=== PATIENT | female | born 1950 | race Caucasian/White ===

== ENCOUNTER → 2016-10-03 | Outpatient (CLI) | payer MEDICARE, OTHER ==
[2016-10-03 08:38] LABS: Basophils # (auto) 0 uL; Basophils % (auto) 0.4 % (0.0-2.0); Eosinophils # (auto) 0.5 uL; Hematocrit 45.4 % (36.0-46.0); Hemoglobin 14.9 g/dL (12.2-16.2); Lymphocytes # (auto) 1.7 uL; Lymphocytes % (auto) 28.6 % (10.0-50.0); Mean Corpuscular Hemoglobin 29.8 pg (28.0-32.0); Mean Corpuscular Hgb Conc. 32.9 g/dL (32.0-36.0); Mean Corpuscular Volume 90.5 fL (80.0-100.0); Mean Platelet Volume 8.1 fL (7.4-10.4); Monocytes # (auto) 0.3 uL; Monocytes % (auto) 5.9 % (0.0-12.0); Neutrophils # (auto) 3.2 uL; Neutrophils % (auto) 56.1 % (37.0-80.0); Platelet Count (auto) 257 10^3/uL (140-450); Red Cell Distribution Width 14.2 % (11.6-16.0); White Blood Cell 5.8 10^3/uL (4.4-10.8)
[2016-10-03 08:57] LABS: B-Type Natriuretic Peptide 11.86 pg/mL (0-100)
[2016-10-03 09:00] LABS: Albumin 3.8 g/dL (3.4-5.0); BUN/Creatinine Ratio 15.1; Bilirubin, Total 0.5 mg/dL (0.2-1.0); Calcium 9.1 mg/dL (8.5-10.1); Potassium 5.2 mmol/L (3.5-5.1); Temperature: 22.5 C (20.0-25.0); Total Protein 7.6 g/dL (6.4-8.2)
== END | disposition home or self-care (01) ==
LOC: LAB 08:08
PROVIDERS: ATTEND Internal Medicine Cardiovascular Disease
DX: I50.9 Heart failure, unspecified (principal)
CPT/HCPCS: 36415; 80053; 80061; 83880; 85025

== ENCOUNTER → 2016-10-29 | Outpatient (CLI) | payer OTHER | END | disposition home or self-care (01) | LOC: XY 08:10 | PROVIDERS: ATTEND Internal Medicine Cardiovascular Disease | DX: I20.8 Other forms of angina pectoris (principal) | CPT/HCPCS: 78452; 93017; 93306; A9500 ==

== ENCOUNTER → 2016-11-17 | Outpatient (CLI) | payer OTHER ==
[2016-11-17 09:30] LABS: Basophils # (auto) 0 uL; Basophils % (auto) 0.3 % (0.0-2.0); CONDITION Y; Eosinophils # (auto) 0.2 uL; Eosinophils % (auto) 2.9 % (0.0-7.0); Hematocrit 42.7 % (36.0-46.0); Hemoglobin 14.1 g/dL (12.2-16.2); Lymphocytes # (auto) 1.6 uL; Lymphocytes % (auto) 29.7 % (10.0-50.0); Mean Corpuscular Hemoglobin 29.7 pg (28.0-32.0); Mean Corpuscular Volume 89.9 fL (80.0-100.0); Mean Platelet Volume 7.7 fL (7.4-10.4); Monocytes # (auto) 0.3 uL; Monocytes % (auto) 6.1 % (0.0-12.0); Neutrophils # (auto) 3.3 uL; Platelet Count (auto) 330 10^3/uL (140-450); Red Cell Distribution Width 14.4 % (11.6-16.0); White Blood Cell 5.4 10^3/uL (4.4-10.8)
[2016-11-17 09:59] LABS: Albumin 3.7 g/dL (3.4-5.0); BUN/Creatinine Ratio 15.5; Bilirubin, Total 0.4 mg/dL (0.2-1.0); Calcium 9.2 mg/dL (8.5-10.1); Potassium 4.9 mmol/L (3.5-5.1); Total Protein 7.5 g/dL (6.4-8.2)
== END | disposition home or self-care (01) ==
LOC: LAB 09:13
PROVIDERS: ATTEND Internal Medicine
DX: L03.90 Cellulitis, unspecified (principal)
CPT/HCPCS: 36415; 80053; 85025; 85652

== ENCOUNTER → 2017-04-29 | Outpatient (CLI) | payer OTHER ==
[2017-04-29 10:44] LABS: Urine RBC None Seen /hpf (0 - 4)
[2017-04-29 11:02] LABS: Basophils # (auto) 0 uL; Basophils % (auto) 0.7 % (0.0-2.0); Eosinophils # (auto) 0.2 uL; Eosinophils % (auto) 4.2 % (0.0-7.0); Hematocrit 43.8 % (36.0-46.0); Hemoglobin 14.6 g/dL (12.2-16.2); Lymphocytes # (auto) 1.6 uL; Lymphocytes % (auto) 31.8 % (10.0-50.0); Mean Corpuscular Hemoglobin 29.6 pg (28.0-32.0); Mean Corpuscular Hgb Conc. 33.3 g/dL (32.0-36.0); Mean Corpuscular Volume 89.1 fL (80.0-100.0); Mean Platelet Volume 7.7 fL (6.9-10.8); Monocytes # (auto) 0.5 uL; Monocytes % (auto) 9.2 % (0.0-12.0); Neutrophils # (auto) 2.7 uL; Neutrophils % (auto) 54.1 % (37.0-80.0); Platelet Count (auto) 222 10^3/uL (140-450)
[2017-04-29 11:08] LABS: Urine Bilirubin Negative (Negative); Urine Blood Negative /uL (Negative); Urine Color Yellow (Yellow); Urine Glucose Normal (Normal); Urine Ketone Negative (Negative); Urine Mucus FEW (None Seen); Urine Nitrite Negative (Negative); Urine Squamous Epithelial Cell FEW /hpf (<5); Urine Urobilinogen Normal (Negative); Urine pH 5.5 (5.0-8.0)
[2017-04-29 11:27] LABS: Urine Protein/Creatinine Ratio 0.17
[2017-04-29 11:29] LABS: Bilirubin, Total 0.6 mg/dL (0.2-1.0); Calcium 8.9 mg/dL (8.5-10.1); Phosphorus 3.9 mg/dL (2.5-4.90); Potassium 4.6 mmol/L (3.5-5.1); Total Protein 7.5 g/dL (6.4-8.2)
== END | disposition home or self-care (01) ==
LOC: LAB 10:29
PROVIDERS: ATTEND Internal Medicine
DX: I12.9 Hypertensive chronic kidney disease with stage 1 through stage 4 chronic kidney disease, or unspecified chronic kidney disease (principal); N18.3 Chronic kidney disease, stage 3 (moderate); D63.1 Anemia in chronic kidney disease; E21.3 Hyperparathyroidism, unspecified; E55.9 Vitamin D deficiency, unspecified; M10.9 Gout, unspecified; E78.5 Hyperlipidemia, unspecified; R80.9 Proteinuria, unspecified
CPT/HCPCS: 36415; 80053; 80069; 81001; 82306; 82570; 83970; 84156; 84550; 85025

== ENCOUNTER → 2017-05-07 | Outpatient (CLI) | payer OTHER ==
[2017-05-07 09:38] LABS: Basophils # (auto) 0 uL; Basophils % (auto) 0.6 % (0.0-2.0); Eosinophils # (auto) 0.2 uL; Eosinophils % (auto) 4.6 % (0.0-7.0); Hematocrit 44.7 % (36.0-46.0); Hemoglobin 14.8 g/dL (12.2-16.2); Lymphocytes # (auto) 1.2 uL; Lymphocytes % (auto) 27.2 % (10.0-50.0); Mean Corpuscular Hemoglobin 29.6 pg (28.0-32.0); Mean Corpuscular Volume 89.7 fL (80.0-100.0); Monocytes # (auto) 0.4 uL; Monocytes % (auto) 9.2 % (0.0-12.0); Neutrophils # (auto) 2.7 uL; Neutrophils % (auto) 58.4 % (37.0-80.0); Nucleated Red Blood Cells % 0.1 %; Platelet Count (auto) 216 10^3/uL (140-450); Red Blood Cells 4.99 10^6/uL (4.0-5.20); Red Cell Distribution Width 14.1 % (11.8-14.3); White Blood Cell 4.6 10^3/uL (4.4-10.8)
[2017-05-07 09:57] LABS: Albumin 3.9 g/dL (3.4-5.0); Bilirubin, Total 0.6 mg/dL (0.2-1.0); Potassium 4.9 mmol/L (3.5-5.1); Total Protein 7.5 g/dL (6.4-8.2)
[2017-05-07 10:46] LABS: Urine Bacteria NONE SEEN /hpf (None Seen); Urine Blood Negative /uL (Negative); Urine Specific Gravity 1.021 (1.001-1.035); Urine WBC 3 /hpf (0 - 5)
== END | disposition home or self-care (01) ==
LOC: LAB 08:59
PROVIDERS: ATTEND Internal Medicine
DX: I10 Essential (primary) hypertension (principal); R19.7 Diarrhea, unspecified
CPT/HCPCS: 36415; 80053; 81001; 82150; 83690; 85025; 85652

== ENCOUNTER → 2017-10-26 | Outpatient (CLI) | payer OTHER ==
[2017-10-26 10:15] LABS: Basophils # (auto) 0 uL; Basophils % (auto) 0.6 % (0.0-2.0); Eosinophils # (auto) 0.2 uL; Eosinophils % (auto) 3.8 % (0.0-7.0); Hematocrit 45.7 % (36.0-46.0); Hemoglobin 15.5 g/dL (12.2-16.2); Lymphocytes % (auto) 20.2 % (10.0-50.0); Mean Corpuscular Hemoglobin 30.1 pg (28.0-32.0); Mean Corpuscular Hgb Conc. 33.9 g/dL (32.0-36.0); Mean Corpuscular Volume 88.9 fL (80.0-100.0); Monocytes # (auto) 0.3 uL; Neutrophils # (auto) 3.2 uL; Neutrophils % (auto) 68.4 % (37.0-80.0); Nucleated Red Blood Cells % 0.1 %; Platelet Count (auto) 193 10^3/uL (140-450); Red Blood Cells 5.15 10^6/uL (4.0-5.20); Red Cell Distribution Width 14.4 % (11.8-14.3); White Blood Cell 4.7 10^3/uL (4.4-10.8)
[2017-10-26 10:22] LABS: Urine Bacteria NONE SEEN /hpf (None Seen); Urine Blood Negative /uL (Negative); Urine Specific Gravity 1.014 (1.001-1.035); Urine WBC 3 /hpf (0 - 5)
[2017-10-26 10:41] LABS: BUN/Creatinine Ratio 11.5; Calcium 9.2 mg/dL (8.5-10.1); Phosphorus 3.6 mg/dL (2.5-4.90); Uric Acid 4.7 mg/dL (2.6-6.0)
[2017-10-26 13:16] LABS: Protein, Urine 22.5 mg/dL (0.0-11.9)
== END | disposition home or self-care (01) ==
LOC: LAB 09:19
PROVIDERS: ATTEND Internal Medicine
DX: E78.5 Hyperlipidemia, unspecified (principal); E55.9 Vitamin D deficiency, unspecified; M10.9 Gout, unspecified; N18.3 Chronic kidney disease, stage 3 (moderate); D63.1 Anemia in chronic kidney disease; E21.3 Hyperparathyroidism, unspecified; R80.9 Proteinuria, unspecified
CPT/HCPCS: 36415; 80069; 81001; 82306; 82570; 83970; 84156; 84550; 85025

== ENCOUNTER → 2018-01-13 | Outpatient (CLI) | payer OTHER ==
[2018-01-13 09:23] LABS: BUN/Creatinine Ratio 16.2; Calcium 8.6 mg/dL (8.5-10.1); Potassium 4.7 mmol/L (3.5-5.1)
== END | disposition home or self-care (01) ==
LOC: LAB 08:30
PROVIDERS: ATTEND Internal Medicine
DX: I12.9 Hypertensive chronic kidney disease with stage 1 through stage 4 chronic kidney disease, or unspecified chronic kidney disease (principal); N18.3 Chronic kidney disease, stage 3 (moderate)
CPT/HCPCS: 36415; 80048; 80061; 82306; 84443

== ENCOUNTER → 2018-06-02 | Outpatient (CLI) | payer OTHER ==
[2018-06-02 09:03] LABS: Basophils # (auto) 0 uL; Basophils % (auto) 0.5 % (0.0-2.0); Eosinophils # (auto) 0.2 uL; Eosinophils % (auto) 3.5 % (0.0-7.0); Hematocrit 45.9 % (36.0-46.0); Hemoglobin 15.5 g/dL (12.2-16.2); Lymphocytes # (auto) 1.1 uL; Lymphocytes % (auto) 26.2 % (10.0-50.0); Mean Corpuscular Hemoglobin 30.2 pg (28.0-32.0); Mean Corpuscular Hgb Conc. 33.8 g/dL (32.0-36.0); Mean Corpuscular Volume 89.2 fL (80.0-100.0); Monocytes # (auto) 0.3 uL; Monocytes % (auto) 7.4 % (0.0-12.0); Neutrophils # (auto) 2.7 uL; Neutrophils % (auto) 62.4 % (37.0-80.0); Nucleated Red Blood Cells % 0.1 %; Platelet Count (auto) 190 10^3/uL (140-450); Red Blood Cells 5.14 10^6/uL (4.0-5.20); Red Cell Distribution Width 13.9 % (11.8-14.3); White Blood Cell 4.3 10^3/uL (4.4-10.8)
[2018-06-02 09:20] LABS: Urine Bacteria FEW /hpf (None Seen); Urine Blood Negative /uL (Negative); Urine Mucus FEW (None Seen); Urine Specific Gravity 1.022 (1.001-1.035); Urine WBC 3 /hpf (0 - 5)
[2018-06-02 09:53] LABS: Albumin 3.9 g/dL (3.4-5.0); Calcium 9.4 mg/dL (8.5-10.1); Potassium 4.6 mmol/L (3.5-5.1); Uric Acid 4.4 mg/dL (2.6-6.0)
[2018-06-02 10:01] LABS: Protein, Urine 31.9 mg/dL (0.0-11.9)
== END | disposition home or self-care (01) ==
LOC: LAB 08:13
PROVIDERS: ATTEND Internal Medicine
DX: I12.9 Hypertensive chronic kidney disease with stage 1 through stage 4 chronic kidney disease, or unspecified chronic kidney disease (principal); N18.3 Chronic kidney disease, stage 3 (moderate); D63.1 Anemia in chronic kidney disease; E21.3 Hyperparathyroidism, unspecified; E55.9 Vitamin D deficiency, unspecified; E78.5 Hyperlipidemia, unspecified; M10.9 Gout, unspecified; R80.9 Proteinuria, unspecified
CPT/HCPCS: 36415; 80069; 81001; 82306; 82570; 83970; 84156; 84550; 85025

== ENCOUNTER → 2018-09-02 | Outpatient (CLI) | payer OTHER | END | disposition home or self-care (01) | LOC: XYW 08:57 | PROVIDERS: ATTEND Internal Medicine | DX: R07.9 Chest pain, unspecified (principal); I10 Essential (primary) hypertension | CPT/HCPCS: 93306 ==

== ENCOUNTER → 2018-09-16 | Outpatient (CLI) | payer OTHER ==
[~2018-09-16] VITALS: Ht 165.1 cm; Wt 54.4 kg
[~2018-09-16] MED LIST: ADENOSINE 46 MG in GIVE UN-DILUTED 0 ML IV STA
== END | disposition home or self-care (01) ==
LOC: XY 08:14
PROVIDERS: ATTEND Internal Medicine
DX: R07.9 Chest pain, unspecified (principal); I10 Essential (primary) hypertension
CPT/HCPCS: 78452; 93017; A9500; J0153

== ENCOUNTER → 2018-09-28 | Outpatient (CLI) | payer OTHER ==
[2018-09-28 08:34] LABS: Basophils # (auto) 0 uL; Basophils % (auto) 0.9 % (0.0-2.0); Eosinophils # (auto) 0.2 uL; Eosinophils % (auto) 4.1 % (0.0-7.0); Hemoglobin 15.1 g/dL (12.2-16.2); Lymphocytes % (auto) 23.7 % (10.0-50.0); Mean Corpuscular Hemoglobin 29.5 pg (28.0-32.0); Mean Corpuscular Hgb Conc. 32.9 g/dL (32.0-36.0); Mean Corpuscular Volume 89.7 fL (80.0-100.0); Monocytes # (auto) 0.3 uL; Neutrophils # (auto) 2.7 uL; Neutrophils % (auto) 63.3 % (37.0-80.0); Platelet Count (auto) 199 10^3/uL (140-450); Red Blood Cells 5.13 10^6/uL (4.0-5.20); Red Cell Distribution Width 14.4 % (11.8-14.3); White Blood Cell 4.2 10^3/uL (4.4-10.8)
[2018-09-28 08:41] LABS: Urine Bacteria NONE SEEN /hpf (None Seen); Urine Blood Negative /uL (Negative); Urine Specific Gravity 1.021 (1.001-1.035); Urine WBC 2 /hpf (0 - 5)
[2018-09-28 09:15] LABS: Albumin 3.9 g/dL (3.4-5.0); BUN/Creatinine Ratio 20.9; Potassium 4.6 mmol/L (3.5-5.1)
[2018-09-28 09:18] LABS: Bilirubin, Total 0.5 mg/dL (0.2-1.0); Total Protein 7.6 g/dL (6.4-8.2)
[2018-09-28 09:21] LABS: Free T3 2.84 pg/mL (2.3-4.2); Free T4 (Free Thyroxine) 1.11 ng/dL (0.89-1.76); T3 Total 1.09 ng/mL (0.60-1.81)
[2018-09-28 14:37] LABS: CRP High Sensitivity 0.07 mg/dL (< 0.3)
== END | disposition home or self-care (01) ==
LOC: LAB 08:04
PROVIDERS: ATTEND Internal Medicine
DX: R07.89 Other chest pain (principal)
CPT/HCPCS: 36415; 80053; 80061; 81001; 82306; 82607; 83036; 84439; 84443; 84480; 84481; 85025; 86141

== ENCOUNTER → 2018-12-06 | Outpatient (CLI) | payer OTHER ==
[2018-12-06 12:43] LABS: Basophils # (auto) 0 uL; Basophils % (auto) 0.7 % (0.0-2.0); Eosinophils # (auto) 0.2 uL; Eosinophils % (auto) 3.9 % (0.0-7.0); Hematocrit 44.8 % (36.0-46.0); Hemoglobin 14.9 g/dL (12.2-16.2); Lymphocytes # (auto) 1.4 uL; Lymphocytes % (auto) 31.3 % (10.0-50.0); Mean Corpuscular Hemoglobin 29.9 pg (28.0-32.0); Mean Corpuscular Hgb Conc. 33.3 g/dL (32.0-36.0); Mean Corpuscular Volume 89.7 fL (80.0-100.0); Monocytes # (auto) 0.4 uL; Monocytes % (auto) 8.2 % (0.0-12.0); Neutrophils # (auto) 2.5 uL; Neutrophils % (auto) 55.9 % (37.0-80.0); Platelet Count (auto) 181 10^3/uL (140-450); Red Cell Distribution Width 14.5 % (11.8-14.3); White Blood Cell 4.6 10^3/uL (4.4-10.8)
[2018-12-06 12:45] LABS: Urine Blood Negative /uL (Negative); Urine Specific Gravity 1.019 (1.001-1.035)
[2018-12-06 13:02] LABS: Albumin 3.7 g/dL (3.4-5.0); BUN/Creatinine Ratio 18.7; Calcium 9.1 mg/dL (8.5-10.1); Phosphorus 3.3 mg/dL (2.5-4.90); Potassium 4.7 mmol/L (3.5-5.1); Uric Acid 4.8 mg/dL (2.6-6.0)
[2018-12-06 13:03] LABS: Creatinine, Urine 88 mg/dL (30.0-125.0); Protein, Urine 18.2 mg/dL (0.0-11.9)
== END | disposition home or self-care (01) ==
LOC: LAB 12:25
PROVIDERS: ATTEND Internal Medicine
DX: E55.9 Vitamin D deficiency, unspecified (principal); N39.0 Urinary tract infection, site not specified; M10.9 Gout, unspecified; D63.1 Anemia in chronic kidney disease; N18.3 Chronic kidney disease, stage 3 (moderate); E21.3 Hyperparathyroidism, unspecified; R80.9 Proteinuria, unspecified
CPT/HCPCS: 36415; 80069; 81003; 82306; 82570; 83970; 84156; 84550; 85025

== ENCOUNTER → 2019-06-14 | Outpatient (CLI) | payer OTHER ==
[2019-06-14 10:18] LABS: Urine WBC None Seen /hpf (0 - 5)
[2019-06-14 10:25] LABS: Basophils # (auto) 0 uL; Basophils % (auto) 0.3 % (0.0-2.0); Eosinophils # (auto) 0.2 uL; Eosinophils % (auto) 2.7 % (0.0-7.0); Hemoglobin 15.4 g/dL (12.2-16.2); Lymphocytes # (auto) 1.2 uL; Lymphocytes % (auto) 22.7 % (10.0-50.0); Mean Corpuscular Hemoglobin 29.9 pg (28.0-32.0); Mean Corpuscular Hgb Conc. 32.9 g/dL (32.0-36.0); Mean Corpuscular Volume 90.9 fL (80.0-100.0); Monocytes # (auto) 0.4 uL; Monocytes % (auto) 6.8 % (0.0-12.0); Neutrophils # (auto) 3.7 uL; Neutrophils % (auto) 67.5 % (37.0-80.0); Platelet Count (auto) 208 10^3/uL (140-450); Red Blood Cells 5.17 10^6/uL (4.0-5.20); White Blood Cell 5.5 10^3/uL (4.4-10.8)
[2019-06-14 10:33] LABS: Urine Bacteria NONE SEEN /hpf (None Seen); Urine Blood Negative /uL (Negative)
[2019-06-14 10:50] LABS: BUN/Creatinine Ratio 20.6; Calcium 9.1 mg/dL (8.5-10.1); Phosphorus 3.8 mg/dL (2.5-4.90); Potassium 4.9 mmol/L (3.5-5.1); Uric Acid 4.2 mg/dL (2.6-6.0)
[2019-06-14 10:52] LABS: Protein, Urine 26.1 mg/dL (0.0-11.9)
== END | disposition home or self-care (01) ==
LOC: LAB 10:01
PROVIDERS: ATTEND Internal Medicine
DX: N18.3 Chronic kidney disease, stage 3 (moderate) (principal); D63.1 Anemia in chronic kidney disease; E21.3 Hyperparathyroidism, unspecified; E78.5 Hyperlipidemia, unspecified; M10.9 Gout, unspecified; R80.9 Proteinuria, unspecified; E55.9 Vitamin D deficiency, unspecified
CPT/HCPCS: 36415; 80069; 81001; 82306; 82570; 83970; 84156; 84550; 85025

== ENCOUNTER → 2019-10-25 | Outpatient (CLI) | payer OTHER ==
[2019-10-25 09:24] LABS: Urine Blood Negative /uL (Negative)
[2019-10-25 09:25] LABS: Basophils # (auto) 0 10 ^3/uL (0-0.2); Basophils % (auto) 0.7 % (0.0-2.0); Eosinophils # (auto) 0.3 10 ^3/uL (0-0.8); Eosinophils % (auto) 5.6 % (0.0-7.0); Hematocrit 48.9 % (36.0-46.0); Hemoglobin 15.3 g/dL (12.2-16.2); Lymphocytes # (auto) 1.3 10 ^3/uL (0.4-5.4); Lymphocytes % (auto) 26.2 % (10.0-50.0); Mean Corpuscular Hemoglobin 29.5 pg (28.0-32.0); Mean Corpuscular Hgb Conc. 31.3 g/dL (32.0-36.0); Mean Corpuscular Volume 94.1 fL (80.0-100.0); Monocytes # (auto) 0.5 10 ^3/uL (0-1.3); Monocytes % (auto) 9.5 % (0.0-12.0); Neutrophils # (auto) 2.8 10 ^3/uL (1.6-8.6); Platelet Count (auto) 210 10^3/uL (140-450); Red Cell Distribution Width 15.8 % (11.8-14.3); White Blood Cell 4.9 10^3/uL (4.4-10.8)
[2019-10-25 09:44] LABS: Creatinine, Urine 127 mg/dL (30.0-125.0); Protein, Urine 37.6 mg/dL (0.0-11.9)
[2019-10-25 09:49] LABS: Potassium 4.8 mmol/L (3.5-5.1)
[2019-10-25 09:58] LABS: Albumin 3.8 g/dL (3.4-5.0); BUN/Creatinine Ratio 20.7; Bilirubin, Total 0.5 mg/dL (0.2-1.0); Phosphorus 3.8 mg/dL (2.5-4.90); Total Protein 7.3 g/dL (6.4-8.2); Uric Acid 4.6 mg/dL (2.6-6.0)
== END | disposition home or self-care (01) ==
LOC: LAB 08:17
PROVIDERS: ATTEND Internal Medicine
DX: Z00.00 Encounter for general adult medical examination without abnormal findings (principal); I12.9 Hypertensive chronic kidney disease with stage 1 through stage 4 chronic kidney disease, or unspecified chronic kidney disease; N18.3 Chronic kidney disease, stage 3 (moderate); E55.9 Vitamin D deficiency, unspecified; M10.9 Gout, unspecified; D63.1 Anemia in chronic kidney disease; R80.9 Proteinuria, unspecified; E21.3 Hyperparathyroidism, unspecified; Z12.11 Encounter for screening for malignant neoplasm of colon
CPT/HCPCS: 36415; 80053; 80061; 80069; 81003; 82306; 82570; 83970; 84156; 84443; 84550; 85025

== ENCOUNTER → 2021-02-26 | Outpatient (CLI) | payer OTHER ==
[2021-02-26 09:41] LABS: Albumin 3.8 g/dL (3.4-5.0); Basophils # (auto) 0 10 ^3/uL (0-0.2); Basophils % (auto) 0.6 % (0.0-2.0); Calcium 9.5 mg/dL (8.5-10.1); Eosinophils # (auto) 0.1 10 ^3/uL (0-0.8); Eosinophils % (auto) 2.5 % (0.0-7.0); Hematocrit 45.8 % (36.0-46.0); Hemoglobin 15.1 g/dL (12.2-16.2); Lymphocytes # (auto) 1.2 10 ^3/uL (0.4-5.4); Lymphocytes % (auto) 25.3 % (10.0-50.0); Mean Corpuscular Hemoglobin 30.2 pg (28.0-32.0); Mean Corpuscular Volume 91.7 fL (80.0-100.0); Monocytes # (auto) 0.3 10 ^3/uL (0-1.3); Monocytes % (auto) 7.2 % (0.0-12.0); Neutrophils # (auto) 3.1 10 ^3/uL (1.6-8.6); Neutrophils % (auto) 64.4 % (37.0-80.0); Nucleated Red Blood Cells % 0.1 %; Potassium 4.9 mmol/L (3.5-5.1); Red Blood Cells 4.99 10^6/uL (4.0-5.20); Red Cell Distribution Width 14.6 % (11.8-14.3); White Blood Cell 4.8 10^3/uL (4.4-10.8)
[2021-02-26 09:47] LABS: BUN/Creatinine Ratio 21.3; Bilirubin, Total 0.5 mg/dL (0.2-1.0); Total Protein 7.7 g/dL (6.4-8.2)
== END | disposition home or self-care (01) ==
LOC: LAB 09:00
PROVIDERS: ATTEND Internal Medicine
DX: Z12.11 Encounter for screening for malignant neoplasm of colon (principal); Z00.00 Encounter for general adult medical examination without abnormal findings; E55.9 Vitamin D deficiency, unspecified; I10 Essential (primary) hypertension
CPT/HCPCS: 36415; 80053; 80061; 82274; 82306; 84439; 84443; 85025; 85652

== ENCOUNTER → 2021-06-05 | Outpatient (CLI) | payer OTHER ==
[2021-06-05 08:40] LABS: Basophils # (auto) 0 10 ^3/uL (0-0.2); Basophils % (auto) 0.8 % (0.0-2.0); Eosinophils # (auto) 0.2 10 ^3/uL (0-0.8); Eosinophils % (auto) 4.6 % (0.0-7.0); Hematocrit 45.1 % (36.0-46.0); Lymphocytes # (auto) 1.5 10 ^3/uL (0.4-5.4); Lymphocytes % (auto) 32.9 % (10.0-50.0); Mean Corpuscular Hemoglobin 30.3 pg (28.0-32.0); Mean Corpuscular Hgb Conc. 33.3 g/dL (32.0-36.0); Mean Corpuscular Volume 91.1 fL (80.0-100.0); Monocytes # (auto) 0.5 10 ^3/uL (0-1.3); Monocytes % (auto) 12.1 % (0.0-12.0); Neutrophils # (auto) 2.2 10 ^3/uL (1.6-8.6); Neutrophils % (auto) 49.6 % (37.0-80.0); Nucleated Red Blood Cells % 0.1 %; Red Blood Cells 4.95 10^6/uL (4.0-5.20); Red Cell Distribution Width 13.7 % (11.8-14.3); White Blood Cell 4.4 10^3/uL (4.4-10.8)
[2021-06-05 08:50] LABS: Urine Bacteria NONE SEEN /hpf (None Seen); Urine Blood Negative /uL (Negative); Urine Mucus FEW (None Seen); Urine Specific Gravity 1.022 (1.001-1.035); Urine WBC 7 /hpf (0 - 5)
[2021-06-05 09:05] LABS: Potassium 5.2 mmol/L (3.5-5.1)
[2021-06-05 09:12] LABS: Albumin 3.7 g/dL (3.4-5.0); BUN/Creatinine Ratio 18.3; Calcium 9.1 mg/dL (8.5-10.1); Phosphorus 3.9 mg/dL (2.5-4.90); Uric Acid 4.4 mg/dL (2.6-6.0)
[2021-06-05 09:13] LABS: Protein, Urine 28.4 mg/dL (0.0-11.9)
== END | disposition home or self-care (01) ==
LOC: LAB 08:07
PROVIDERS: ATTEND Internal Medicine
DX: D63.1 Anemia in chronic kidney disease (principal); N18.31 Chronic kidney disease, stage 3a; E21.3 Hyperparathyroidism, unspecified; E78.5 Hyperlipidemia, unspecified; R80.9 Proteinuria, unspecified; R82.90 Unspecified abnormal findings in urine; E56.9 Vitamin deficiency, unspecified
CPT/HCPCS: 36415; 80069; 81001; 82306; 82570; 83970; 84156; 84550; 85025

== ENCOUNTER → 2021-06-17 | Outpatient (CLI) | payer OTHER | END | disposition home or self-care (01) | LOC: XYW 08:35 | PROVIDERS: ATTEND Internal Medicine | DX: I07.1 Rheumatic tricuspid insufficiency (principal); I05.0 Rheumatic mitral stenosis; I35.0 Nonrheumatic aortic (valve) stenosis | CPT/HCPCS: 93306 ==

== ENCOUNTER → 2021-06-26 | Outpatient (CLI) | payer OTHER | END | disposition home or self-care (01) | LOC: XY 08:59 | PROVIDERS: ATTEND Internal Medicine | DX: R55 Syncope and collapse (principal); I10 Essential (primary) hypertension | CPT/HCPCS: 93886 ==

== ENCOUNTER → 2021-07-05 | Outpatient (CLI) | payer OTHER ==
[~2021-07-05] VITALS: Ht 162.6 cm; Wt 51.3 kg
[~2021-07-05] MED LIST changes: +ADENOSINE 43 MG in GIVE UN-DILUTED 0 ML IV ONE; -ADENOSINE 46 MG in GIVE UN-DILUTED 0 ML IV STA
== END | disposition home or self-care (01) ==
LOC: XYW 07:08
PROVIDERS: ATTEND Internal Medicine
DX: E78.5 Hyperlipidemia, unspecified (principal); I10 Essential (primary) hypertension; R55 Syncope and collapse
CPT/HCPCS: 78452; 93017; A9500; J0153

== ENCOUNTER → 2021-08-28 | Outpatient (CLI) | payer OTHER | END | disposition home or self-care (01) | LOC: LAB 09:57 | PROVIDERS: ATTEND Student in an Organized Health Care Education/Training Program | DX: Z12.11 Encounter for screening for malignant neoplasm of colon (principal) | CPT/HCPCS: 82270 ==

== ENCOUNTER → 2021-11-25 | Outpatient (CLI) | payer OTHER ==
[2021-11-25 08:00] LABS: Basophils # (auto) 0 10 ^3/uL (0-0.2); Basophils % (auto) 0.7 % (0.0-2.0); Eosinophils # (auto) 0.1 10 ^3/uL (0-0.8); Eosinophils % (auto) 2.4 % (0.0-7.0); Hematocrit 44.3 % (36.0-46.0); Hemoglobin 14.7 g/dL (12.2-16.2); Lymphocytes # (auto) 1.2 10 ^3/uL (0.4-5.4); Lymphocytes % (auto) 27.2 % (10.0-50.0); Mean Corpuscular Hemoglobin 30.5 pg (28.0-32.0); Mean Corpuscular Hgb Conc. 33.2 g/dL (32.0-36.0); Mean Corpuscular Volume 91.8 fL (80.0-100.0); Monocytes # (auto) 0.4 10 ^3/uL (0-1.3); Monocytes % (auto) 9.3 % (0.0-12.0); Neutrophils # (auto) 2.8 10 ^3/uL (1.6-8.6); Neutrophils % (auto) 60.4 % (37.0-80.0); Red Blood Cells 4.82 10^6/uL (4.0-5.20); Red Cell Distribution Width 14.6 % (11.8-14.3); White Blood Cell 4.6 10^3/uL (4.4-10.8)
[2021-11-25 08:16] LABS: Albumin 3.5 g/dL (3.4-5.0)
[2021-11-25 08:17] LABS: Protein, Urine 30.9 mg/dL (0.0-11.9)
[2021-11-25 08:20] LABS: Bilirubin, Direct 0.2 mg/dL (0-0.2); Bilirubin, Total 0.6 mg/dL (0.2-1.0); Total Protein 6.8 g/dL (6.4-8.2); Uric Acid 4.9 mg/dL (2.6-6.0)
[2021-11-25 08:23] LABS: Urine Amorphous Crystal FEW /hpf (None Seen); Urine Bacteria FEW /hpf (None Seen); Urine Blood Negative /uL (Negative); Urine Hyaline Cast FEW /lpf (0 - 2); Urine Mucus FEW (None Seen); Urine WBC 9 /hpf (0 - 5)
== END | disposition home or self-care (01) ==
LOC: LAB 07:25
PROVIDERS: ATTEND Internal Medicine
DX: N18.30 Chronic kidney disease, stage 3 unspecified (principal); D63.1 Anemia in chronic kidney disease; M10.9 Gout, unspecified; E56.9 Vitamin deficiency, unspecified; E21.3 Hyperparathyroidism, unspecified; R80.9 Proteinuria, unspecified
CPT/HCPCS: 36415; 80076; 81001; 82306; 82570; 83970; 84156; 84550; 85025

== ENCOUNTER 2022-01-08 06:51 | Day surgery (SDC) | payer OTHER ==
[2022-01-06 13:25] LABS: Basophils # (auto) 0 10 ^3/uL (0-0.2); Basophils % (auto) 0.6 % (0.0-2.0); Eosinophils # (auto) 0.1 10 ^3/uL (0-0.8); Eosinophils % (auto) 1.9 % (0.0-7.0); Hematocrit 46.6 % (36.0-46.0); Hemoglobin 15.1 g/dL (12.2-16.2); Lymphocytes # (auto) 0.7 10 ^3/uL (0.4-5.4); Lymphocytes % (auto) 15.1 % (10.0-50.0); Mean Corpuscular Hemoglobin 30.2 pg (28.0-32.0); Mean Corpuscular Hgb Conc. 32.4 g/dL (32.0-36.0); Mean Corpuscular Volume 93.3 fL (80.0-100.0); Monocytes # (auto) 0.5 10 ^3/uL (0-1.3); Monocytes % (auto) 9.9 % (0.0-12.0); Neutrophils # (auto) 3.3 10 ^3/uL (1.6-8.6); Neutrophils % (auto) 72.5 % (37.0-80.0); Nucleated Red Blood Cells % 0.1 %; Red Blood Cells 4.99 10^6/uL (4.0-5.20); Red Cell Distribution Width 14.7 % (11.8-14.3); White Blood Cell 4.6 10^3/uL (4.4-10.8)
[2022-01-06 13:56] LABS: Potassium 4.9 mmol/L (3.5-5.1)
[2022-01-06 14:05] LABS: Albumin 3.5 g/dL (3.4-5.0); BUN/Creatinine Ratio 19.9; Bilirubin, Total 0.3 mg/dL (0.2-1.0)
[2022-01-06 15:32] LABS: INR 0.96 (0.9-1.15); Partial Thromboplastin Time 24.8 sec (24.6-33.4)
[2022-01-08] VITALS (11 sets, daily range): BP systolic 120–143; BP diastolic 62–76
[~2022-01-08] VITALS: Ht 162.6 cm; Wt 47.6 kg
[~2022-01-08 06:51] MED LIST changes: -ADENOSINE 43 MG in GIVE UN-DILUTED 0 ML IV ONE; +HYDR12.56 PO; +METO-158 PO; +PANT40TA2 PO
[2022-01-08] MEDS ORDERED: IODIXANOL 320MG/ML 100ML BTL IV ONE ×2 (07:48→08:50)
[2022-01-08] MEDS ORDERED: LIDOCAINE 2%HCL (LOCAL ANESTH.) INJ 10ml MDV ONE (07:48)
[2022-01-08] MEDS ORDERED: fentaNYL CITRATE 100 MCG/2 ML VL ONE (08:24)
[2022-01-08] MEDS ORDERED: methylPREDNISolone SOD SUCC 125 MG/2 ML VL ONE (08:24)
[2022-01-08] MEDS ORDERED: VERAPAMIL 2.5MG/ML INJ 2ML VIAL IV ONE (08:24)
[2022-01-08] MEDS ORDERED: HEPARIN SODIUM (PORCINE) 5000 UNITS/ML 1ML VIAL ONE (08:24)
[2022-01-08] MEDS ORDERED: diphenhdrAMINE HCL 50 MG/1 ML VL ONE (08:24)
[2022-01-08] MEDS ORDERED: FAMOTIDINE (10MG/ML) 2ML VL IV ONE (08:25)
[2022-01-08] MEDS ORDERED: MIDAZOLAM HCL 2MG/2ML 2ml VIAL (1mg/ml) ONE (08:25)
[2022-01-08] MEDS ORDERED: SODIUM CHL 0.9% 50 ML ONE (08:49)
[2022-01-08] MEDS ORDERED: ANGIOMAX 250 MG VIAL IV ONE (08:49)
[2022-01-08] MEDS ORDERED: CLOPIDOGREL 300 MG TAB ONE (09:01)
== END 2022-01-08 14:05 | disposition home or self-care (01) ==
LOC: CATH 06:51
PROVIDERS: ATTEND Internal Medicine
DX: R94.39 Abnormal result of other cardiovascular function study (principal); I25.10 Atherosclerotic heart disease of native coronary artery without angina pectoris; I11.0 Hypertensive heart disease with heart failure; I50.30 Unspecified diastolic (congestive) heart failure; E78.5 Hyperlipidemia, unspecified; Z82.49 Family history of ischemic heart disease and other diseases of the circulatory system; Z20.822 Contact with and (suspected) exposure to COVID-19
CPT/HCPCS: 36415; 80053; 85025; 85610; 85730; 93458; 93571; C1725; C1769; C1874; C1887; C1894; C9600; J0583; J1200; J1644; J2001; J2930; J3010; J3490; J7030; Q9967; U0003; 99152; 99153; J2250

== ENCOUNTER 2022-03-03 12:12 | Inpatient (IN) | payer OTHER ==
[~2022-03-03] VITALS: Ht 160 cm; Wt 47.4 kg
[2022-03-03] MEDS ORDERED: ENOXAPARIN SOD 80 MG/0.8ML SYRINGE SC ONE (13:30)
[2022-03-03] MEDS ORDERED: NITROGLYCERIN 0.4 MG SL TAB SL ONE (13:30)
[2022-03-03] MEDS ORDERED: ASPirin-EC 325mg tab PO ONE (13:30)
[2022-03-03] MEDS ORDERED: MORPHINE SULFATE 4 MG/ML SYR/VIAL IV ONE (13:30)
[2022-03-03 13:47] LABS: Basophils # (auto) 0 10 ^3/uL (0-0.2); Basophils % (auto) 0.4 % (0.0-2.0); Eosinophils # (auto) 0 10 ^3/uL (0-0.8); Eosinophils % (auto) 0.5 % (0.0-7.0); Hematocrit 48.6 % (36.0-46.0); Hemoglobin 15.9 g/dL (12.2-16.2); Lymphocytes # (auto) 0.7 10 ^3/uL (0.4-5.4); Lymphocytes % (auto) 14.9 % (10.0-50.0); Mean Corpuscular Hemoglobin 31.4 pg (28.0-32.0); Mean Corpuscular Hgb Conc. 32.6 g/dL (32.0-36.0); Mean Corpuscular Volume 96.1 fL (80.0-100.0); Monocytes # (auto) 0.3 10 ^3/uL (0-1.3); Monocytes % (auto) 7.3 % (0.0-12.0); Neutrophils # (auto) 3.6 10 ^3/uL (1.6-8.6); Neutrophils % (auto) 76.9 % (37.0-80.0); Nucleated Red Blood Cells % 0.1 %; Red Blood Cells 5.06 10^6/uL (4.0-5.20); Red Cell Distribution Width 14.9 % (11.8-14.3); White Blood Cell 4.7 10^3/uL (4.4-10.8)
[2022-03-03 14:18] LABS: Albumin 3.7 g/dL (3.4-5.0); Calcium 9.1 mg/dL (8.5-10.1); Potassium 5.3 mmol/L (3.5-5.1)
[2022-03-03 14:23] LABS: BUN/Creatinine Ratio 14.3; Bilirubin, Total 0.7 mg/dL (0.2-1.0); Total Protein 6.9 g/dL (6.4-8.2)
[2022-03-03 14:37] LABS: Partial Thromboplastin Time 24.8 sec (24.6-33.4)
[2022-03-03 15:09] LABS: INR 0.98 (0.9-1.15)
[2022-03-03] MEDS ORDERED: NITROGLYCERIN 0.4 MG SL TAB SL PRN (16:30)
[2022-03-03] MEDS ORDERED: ONDANSETRON HCL 4 MG/2 ML VIAL IV PRN (16:30)
[2022-03-03] MEDS ORDERED: MORPHINE SULFATE INJ 2 MG/ml SYRG IV PRN (16:30)
[2022-03-03] MEDS ORDERED: hydrALAZINE HCL 20 MG/ML VL IV PRN (16:45)
[2022-03-03 17:08] LABS: Cholesterol 196 mg/dL (< 200); HDL Cholesterol 100 mg/dL (40-59); LDL Cholesterol 88 mg/dL (< 100); Triglycerides 99 mg/dL (< 150)
[2022-03-03] MEDS: SOD CHL 0.45% 1,000 ML IV SCH (18:27)
[2022-03-03 19:09] LABS: Urine Bacteria NONE SEEN /hpf (None Seen); Urine Blood Negative /uL (Negative); Urine Mucus FEW (None Seen); Urine Specific Gravity 1.021 (1.001-1.035); Urine WBC 2 /hpf (0 - 5)
[2022-03-03] MEDS: ATORVASTATIN 20 MG TAB PO SCH (21:34)
[2022-03-04] MEDS: SOD CHL 0.45% 1,000 ML IV SCH ×2 (02:36→05:00)
[2022-03-04] MEDS: ACETAMINOPHEN 325 MG TAB PO PRN ×2 (03:28→20:33)
[2022-03-04 06:10] LABS: Basophils # (auto) 0 10 ^3/uL (0-0.2); Basophils % (auto) 0.5 % (0.0-2.0); Eosinophils # (auto) 0.1 10 ^3/uL (0-0.8); Eosinophils % (auto) 1.9 % (0.0-7.0); Hematocrit 39.8 % (36.0-46.0); Hemoglobin 13.4 g/dL (12.2-16.2); Lymphocytes # (auto) 0.8 10 ^3/uL (0.4-5.4); Mean Corpuscular Hemoglobin 31.4 pg (28.0-32.0); Mean Corpuscular Hgb Conc. 33.5 g/dL (32.0-36.0); Mean Corpuscular Volume 93.5 fL (80.0-100.0); Monocytes # (auto) 0.5 10 ^3/uL (0-1.3); Monocytes % (auto) 11.2 % (0.0-12.0); Neutrophils # (auto) 3.1 10 ^3/uL (1.6-8.6); Neutrophils % (auto) 68.4 % (37.0-80.0); Nucleated Red Blood Cells % 0.1 %; Red Blood Cells 4.26 10^6/uL (4.0-5.20); Red Cell Distribution Width 14.3 % (11.8-14.3); White Blood Cell 4.5 10^3/uL (4.4-10.8)
[2022-03-04 06:25] LABS: Albumin 2.9 g/dL (3.4-5.0); Potassium 4.8 mmol/L (3.5-5.1)
[2022-03-04 06:28] LABS: BUN/Creatinine Ratio 15.4; Bilirubin, Total 0.5 mg/dL (0.2-1.0); Total Protein 5.2 g/dL (6.4-8.2)
[2022-03-04] MEDS ORDERED: METOPROLOL SUCCINATE XL 50 MG TAB PO SCH (10:00)
[2022-03-04] MEDS: ASPirin 81 mg TAB PO SCH (12:37)
[2022-03-04] MEDS: METOPROLOL SUCCINATE XL 50 MG TAB PO SCH (12:38)
[2022-03-04] MEDS: ENOXAPARIN SOD 30 MG/0.3 ML SYRINGE SC SCH (12:39)
[2022-03-04] MEDS: CLOPIDOGREL BISULFATE 75 MG TAB PO SCH (12:39)
[2022-03-04] MEDS: AMIODARONE HCL 200 MG TAB PO SCH (12:40)
[2022-03-04] MEDS: HCTZ 25 MG TAB PO SCH (12:40)
[2022-03-04 15:17] VITALS: BP_SYST 129; BP_DIAS 54; BP_DIAS 94
[2022-03-04 17:00] VITALS: BP 129/54
[2022-03-04] MEDS ORDERED: CLOP75TA70 PO (17:49)
[2022-03-04] MEDS ORDERED: AMIO200T4 PO (17:49)
[2022-03-04] MEDS: ATORVASTATIN 20 MG TAB PO SCH (20:31)
[2022-03-04 22:00] VITALS: BP 118/55
[2022-03-05 05:00] VITALS: BP 144/69
[2022-03-05 06:01] LABS: Basophils # (auto) 0 10 ^3/uL (0-0.2); Basophils % (auto) 0.5 % (0.0-2.0); Eosinophils # (auto) 0.1 10 ^3/uL (0-0.8); Eosinophils % (auto) 2.2 % (0.0-7.0); Hematocrit 43.6 % (36.0-46.0); Hemoglobin 14.3 g/dL (12.2-16.2); Lymphocytes # (auto) 0.9 10 ^3/uL (0.4-5.4); Lymphocytes % (auto) 15.9 % (10.0-50.0); Mean Corpuscular Hemoglobin 31.3 pg (28.0-32.0); Mean Corpuscular Hgb Conc. 32.9 g/dL (32.0-36.0); Mean Corpuscular Volume 95.1 fL (80.0-100.0); Monocytes # (auto) 0.7 10 ^3/uL (0-1.3); Monocytes % (auto) 11.9 % (0.0-12.0); Neutrophils # (auto) 3.9 10 ^3/uL (1.6-8.6); Neutrophils % (auto) 69.5 % (37.0-80.0); Nucleated Red Blood Cells % 0.1 %; Red Blood Cells 4.58 10^6/uL (4.0-5.20); Red Cell Distribution Width 14.7 % (11.8-14.3); White Blood Cell 5.5 10^3/uL (4.4-10.8)
[2022-03-05 06:20] LABS: BUN/Creatinine Ratio 11.1; Calcium 8.5 mg/dL (8.5-10.1); Potassium 4.5 mmol/L (3.5-5.1)
[2022-03-05] MEDS ORDERED: ADENOSINE 40 MG in GIVE UN-DILUTED 0 ML IV STA (07:57)
[2022-03-05 09:00] VITALS: BP 139/63
[2022-03-05] MEDS: PANTOPRAZOLE 40 MG TAB PO SCH (10:27)
[2022-03-05] MEDS: HCTZ 25 MG TAB PO SCH (10:29)
[2022-03-05] MEDS: ASPirin 81 mg TAB PO SCH (10:30)
[2022-03-05] MEDS: METOPROLOL SUCCINATE XL 50 MG TAB PO SCH (10:30)
[2022-03-05] MEDS: ENOXAPARIN SOD 30 MG/0.3 ML SYRINGE SC SCH (10:31)
[2022-03-05] MEDS: AMIODARONE HCL 200 MG TAB PO SCH (10:31)
[2022-03-05] MEDS: CLOPIDOGREL BISULFATE 75 MG TAB PO SCH (10:31)
[2022-03-05] MEDS ORDERED: ASPI-325 PO (11:54)
[2022-03-05] MEDS ORDERED: METO-158 PO (11:54)
[2022-03-05] MEDS ORDERED: ATOR20TA50 PO (11:54)
[2022-03-05] MEDS ORDERED: AMIO200T4 PO (11:54)
[2022-03-05 13:00] VITALS: BP 93/42
[2022-03-05 17:00] VITALS: BP 118/60
[2022-03-05] MEDS: ATORVASTATIN 20 MG TAB PO SCH (21:16)
[2022-03-05 22:00] VITALS: BP 113/49
[2022-03-06 05:08] VITALS: BP 140/74
[2022-03-06 07:45] VITALS: BP 126/73
[2022-03-06 09:00] VITALS: BP 126/73
[2022-03-06] MEDS: CLOPIDOGREL BISULFATE 75 MG TAB PO SCH (10:17)
[2022-03-06] MEDS: ASPirin 81 mg TAB PO SCH (10:18)
[2022-03-06] MEDS: METOPROLOL SUCCINATE XL 50 MG TAB PO SCH (10:18)
[2022-03-06] MEDS: PANTOPRAZOLE 40 MG TAB PO SCH (10:18)
[2022-03-06] MEDS: AMIODARONE HCL 200 MG TAB PO SCH (10:19)
[2022-03-06] MEDS: HCTZ 25 MG TAB PO SCH (10:19)
[2022-03-06] MEDS: ENOXAPARIN SOD 30 MG/0.3 ML SYRINGE SC SCH (10:20)
[2022-03-06 13:00] VITALS: BP_SYST 111; BP_SYST 113; BP_DIAS 74; BP_DIAS 78
[2022-03-06 15:19] VITALS: BP 111/74
== END 2022-03-06 16:04 | disposition home or self-care (01) | DRG 313 ==
LOC: ER 12:12 → TELE 16:24 → TELE-CENTR 03-04 15:10
PROVIDERS: ADMIT Nurse Practitioner Family; ATTEND Internal Medicine
DX: R07.9 Chest pain, unspecified (principal); N17.9 Acute kidney failure, unspecified; E87.5 Hyperkalemia; I12.9 Hypertensive chronic kidney disease with stage 1 through stage 4 chronic kidney disease, or unspecified chronic kidney disease; I25.119 Atherosclerotic heart disease of native coronary artery with unspecified angina pectoris; I27.20 Pulmonary hypertension, unspecified; N18.9 Chronic kidney disease, unspecified; Z20.822 Contact with and (suspected) exposure to COVID-19; R00.1 Bradycardia, unspecified; R73.03 Prediabetes; N18.2 Chronic kidney disease, stage 2 (mild); Z95.5 Presence of coronary angioplasty implant and graft; Z88.0 Allergy status to penicillin; Z91.041 Radiographic dye allergy status
CPT/HCPCS: 36415; 71045; 78452; 80048; 80053; 80061; 81001; 83036; 83735; 83880; 84443; 84484; 85025; 85610; 85730; 87426; 93005; 93017; 96360; G0378; J0153

== ENCOUNTER → 2022-04-08 | Outpatient (CLI) | payer OTHER ==
[~2022-04-08] MED LIST changes: +AMIO200T4 PO; +ASPI-325 PO; +ATOR20TA50 PO; +CLOP75TA70 PO; -HYDR12.56 PO; -PANT40TA2 PO
[2022-04-08 12:09] LABS: Basophils # (auto) 0 10 ^3/uL (0-0.2); Basophils % (auto) 0.5 % (0.0-2.0); Eosinophils # (auto) 0 10 ^3/uL (0-0.8); Eosinophils % (auto) 0.9 % (0.0-7.0); Hematocrit 47.1 % (36.0-46.0); Hemoglobin 15.1 g/dL (12.2-16.2); Lymphocytes # (auto) 0.8 10 ^3/uL (0.4-5.4); Lymphocytes % (auto) 18.6 % (10.0-50.0); Mean Corpuscular Hemoglobin 30.7 pg (28.0-32.0); Mean Corpuscular Hgb Conc. 31.9 g/dL (32.0-36.0); Monocytes # (auto) 0.5 10 ^3/uL (0-1.3); Monocytes % (auto) 10.7 % (0.0-12.0); Neutrophils # (auto) 3.1 10 ^3/uL (1.6-8.6); Neutrophils % (auto) 69.3 % (37.0-80.0); Red Blood Cells 4.91 10^6/uL (4.0-5.20); Red Cell Distribution Width 14.9 % (11.8-14.3); White Blood Cell 4.5 10^3/uL (4.4-10.8)
[2022-04-08 13:28] LABS: Albumin 3.3 g/dL (3.4-5.0); BUN/Creatinine Ratio 16.4; Phosphorus 3.6 mg/dL (2.5-4.90); Potassium 5.4 mmol/L (3.5-5.1); Uric Acid 3.6 mg/dL (2.6-6.0)
[2022-04-08 14:01] LABS: Protein, Urine 24.7 mg/dL (0.0-11.9)
[2022-04-08 16:41] LABS: Urine Blood Negative /uL (Negative); Urine Specific Gravity 1.019 (1.001-1.035)
[2022-04-08 19:44] LABS: Urine Bacteria NONE SEEN /hpf (None Seen); Urine WBC 0-2 /hpf (0 - 5)
== END | disposition home or self-care (01) ==
LOC: LAB 11:37
PROVIDERS: ATTEND Internal Medicine
DX: R80.9 Proteinuria, unspecified (principal)
CPT/HCPCS: 36415; 80069; 81001; 82570; 83970; 84156; 84550; 85025

== ENCOUNTER → 2022-07-16 | Outpatient (CLI) | payer OTHER | END | disposition home or self-care (01) | LOC: LAB 13:05 | PROVIDERS: ATTEND Student in an Organized Health Care Education/Training Program | DX: Z12.11 Encounter for screening for malignant neoplasm of colon (principal) | CPT/HCPCS: 82274 ==

== ENCOUNTER → 2022-08-12 | Outpatient (CLI) | payer MEDICARE ==
[2022-08-12 14:43] LABS: Basophils # (auto) 0 10 ^3/uL (0-0.2); Basophils % (auto) 0.4 % (0.0-2.0); Eosinophils # (auto) 0.1 10 ^3/uL (0-0.8); Eosinophils % (auto) 1.3 % (0.0-7.0); Hematocrit 44.7 % (36.0-46.0); Hemoglobin 15.2 g/dL (12.2-16.2); Lymphocytes % (auto) 18.2 % (10.0-50.0); Mean Corpuscular Hemoglobin 31.6 pg (28.0-32.0); Mean Corpuscular Volume 92.9 fL (80.0-100.0); Monocytes # (auto) 0.4 10 ^3/uL (0-1.3); Neutrophils % (auto) 72.1 % (37.0-80.0); Red Blood Cells 4.82 10^6/uL (4.0-5.20); Red Cell Distribution Width 14.4 % (11.8-14.3); White Blood Cell 5.6 10^3/uL (4.4-10.8)
[2022-08-12 14:53] LABS: Urine Bacteria NONE SEEN /hpf (None Seen); Urine Blood Negative /uL (Negative); Urine Hyaline Cast FEW /lpf (0 - 2); Urine Specific Gravity 1.019 (1.001-1.035); Urine WBC 2 /hpf (0 - 5)
[2022-08-12 15:24] LABS: Albumin 3.3 g/dL (3.4-5.0); BUN/Creatinine Ratio 22.4 (10.0-20.0); Calcium 8.6 mg/dL (8.5-10.1); Phosphorus 3.3 mg/dL (2.5-4.90); Potassium 4.1 mmol/L (3.5-5.1); Uric Acid 4.8 mg/dL (2.6-6.0)
[2022-08-12 15:53] LABS: Protein, Urine 24.3 mg/dL (0.0-11.9)
== END | disposition home or self-care (01) ==
LOC: LAB 14:06
PROVIDERS: ATTEND Internal Medicine
DX: E78.5 Hyperlipidemia, unspecified (principal); N18.31 Chronic kidney disease, stage 3a; E21.3 Hyperparathyroidism, unspecified; M10.9 Gout, unspecified; R80.9 Proteinuria, unspecified; R82.90 Unspecified abnormal findings in urine
CPT/HCPCS: 36415; 80069; 81001; 82306; 82570; 83970; 84156; 84550; 85025

== ENCOUNTER → 2022-08-20 | Outpatient (CLI) | payer OTHER | END | disposition home or self-care (01) | LOC: XYW 08:28 | PROVIDERS: ATTEND Student in an Organized Health Care Education/Training Program | DX: I73.9 Peripheral vascular disease, unspecified (principal); I70.8 Atherosclerosis of other arteries | CPT/HCPCS: 93925 ==

== ENCOUNTER → 2022-11-17 | Outpatient (CLI) | payer OTHER ==
[~2022-11-17] MED LIST changes: +AMIO200T13 PO; -AMIO200T4 PO
[2022-11-17 09:32] LABS: Albumin 3.3 g/dL (3.4-5.0); BUN/Creatinine Ratio 19.6 (10.0-20.0); Calcium 8.8 mg/dL (8.5-10.1); Potassium 4.9 mmol/L (3.5-5.1)
[2022-11-17 09:45] LABS: Protein, Urine 34.6 mg/dL (0.0-11.9)
== END | disposition home or self-care (01) ==
LOC: LAB 08:08
PROVIDERS: ATTEND Internal Medicine
DX: N18.30 Chronic kidney disease, stage 3 unspecified (principal); E11.21 Type 2 diabetes mellitus with diabetic nephropathy; E55.9 Vitamin D deficiency, unspecified; E21.3 Hyperparathyroidism, unspecified; M10.9 Gout, unspecified; D63.1 Anemia in chronic kidney disease; N39.0 Urinary tract infection, site not specified; R80.9 Proteinuria, unspecified
CPT/HCPCS: 36415; 80069; 82306; 82570; 83970; 84156; 84550

== ENCOUNTER → 2023-05-07 | Outpatient (CLI) | payer OTHER ==
[2023-05-07 14:42] LABS: Basophils # (auto) 0 10 ^3/uL (0-0.2); Basophils % (auto) 0.4 % (0.0-2.0); Eosinophils # (auto) 0.1 10 ^3/uL (0-0.8); Eosinophils % (auto) 1.4 % (0.0-7.0); Hematocrit 47.4 % (36.0-46.0); Hemoglobin 15.3 g/dL (12.2-16.2); Mean Corpuscular Hemoglobin 30.5 pg (28.0-32.0); Mean Corpuscular Hgb Conc. 32.2 g/dL (32.0-36.0); Mean Corpuscular Volume 94.6 fL (80.0-100.0); Monocytes # (auto) 0.5 10 ^3/uL (0-1.3); Monocytes % (auto) 12.7 % (0.0-12.0); Neutrophils # (auto) 2.7 10 ^3/uL (1.6-8.6); Neutrophils % (auto) 62.5 % (37.0-80.0); Red Blood Cells 5.01 10^6/uL (4.0-5.20); Red Cell Distribution Width 14.1 % (11.8-14.3); White Blood Cell 4.2 10^3/uL (4.4-10.8)
[2023-05-07 14:48] LABS: Urine Bacteria FEW /hpf (None Seen); Urine Blood Negative /uL (Negative); Urine Clarity Clear (Clear); Urine Color Yellow (Yellow); Urine Protein, UAD Negative (Negative); Urine Specific Gravity 1.019 (1.001-1.035); Urine Urobilinogen Normal (Negative); Urine WBC 1 /hpf (0 - 5); Urine pH 5.5 (5.0-8.0)
[2023-05-07 15:02] LABS: Potassium 4.7 mmol/L (3.5-5.1)
[2023-05-07 15:04] LABS: Calcium 9.6 mg/dL (8.5-10.1)
[2023-05-07 15:05] LABS: Protein, Urine 21.7 mg/dL (0.0-11.9)
[2023-05-07 15:08] LABS: Creatinine, Urine 92.32 mg/dL (30.0-125.0); Urine Protein/Creatinine Ratio 0.24
[2023-05-07 15:09] LABS: BUN/Creatinine Ratio 13.1 (10.0-20.0)
[2023-05-07 15:10] LABS: Albumin 4.4 g/dL (3.2-4.8)
[2023-05-07 15:11] LABS: Phosphorus 3.9 mg/dL (2.4-5.1)
[2023-05-07 15:35] LABS: Uric Acid 4.7 mg/dL (3.1-7.8)
== END | disposition home or self-care (01) ==
LOC: LAB 14:17
PROVIDERS: ATTEND Internal Medicine
DX: N18.31 Chronic kidney disease, stage 3a (principal); D63.1 Anemia in chronic kidney disease; E78.5 Hyperlipidemia, unspecified; M10.9 Gout, unspecified; E21.3 Hyperparathyroidism, unspecified; R80.9 Proteinuria, unspecified; R82.90 Unspecified abnormal findings in urine
CPT/HCPCS: 36415; 80069; 81001; 82306; 82570; 83970; 84156; 84550; 85025

== ENCOUNTER 2023-05-20 08:50 | Emergency (ER) | payer OTHER ==
[~2023-05-20] VITALS: Ht 162.6 cm; Wt 45.6 kg
[2023-05-20 12:43] VITALS: BP 135/55; PULSE 65; RESP 16; TEMP 98.4; O2SAT 95
== END 2023-05-20 12:44 | disposition home or self-care (01) ==
LOC: ER 08:50
DX: S61.412A Laceration without foreign body of left hand, initial encounter (principal); S61.411A Laceration without foreign body of right hand, initial encounter; I10 Essential (primary) hypertension; Z88.8 Allergy status to other drugs, medicaments and biological substances; Z79.899 Other long term (current) drug therapy; Z91.041 Radiographic dye allergy status; V89.2XXA Person injured in unspecified motor-vehicle accident, traffic, initial encounter; Y93.I9 Activity, other involving external motion; Y92.89 Other specified places as the place of occurrence of the external cause; Y99.8 Other external cause status

== ENCOUNTER → 2023-05-21 | Outpatient (CLI) | payer OTHER ==
[2023-05-21 12:26] LABS: Free T3 3.6 pg/mL (2.3-4.2); Free T4 (Free Thyroxine) 1.61 ng/dL (0.89-1.76)
== END | disposition home or self-care (01) ==
LOC: LAB 11:21
PROVIDERS: ATTEND Internal Medicine
DX: E21.3 Hyperparathyroidism, unspecified (principal)
CPT/HCPCS: 36415; 84439; 84443; 84481

== ENCOUNTER → 2023-10-13 | Outpatient (CLI) | payer OTHER ==
[2023-10-13 09:58] LABS: Basophils # (auto) 0 10 ^3/uL (0-0.2); Basophils % (auto) 0.5 % (0.0-2.0); Eosinophils # (auto) 0.2 10 ^3/uL (0-0.8); Eosinophils % (auto) 3.9 % (0.0-7.0); Hematocrit 43.6 % (36.0-46.0); Hemoglobin 14.3 g/dL (12.2-16.2); Lymphocytes # (auto) 0.8 10 ^3/uL (0.4-5.4); Lymphocytes % (auto) 13.7 % (10.0-50.0); Mean Corpuscular Hemoglobin 29.6 pg (28.0-32.0); Mean Corpuscular Hgb Conc. 32.8 g/dL (32.0-36.0); Mean Corpuscular Volume 90.3 fL (80.0-100.0); Monocytes # (auto) 0.7 10 ^3/uL (0-1.3); Monocytes % (auto) 11.7 % (0.0-12.0); Neutrophils % (auto) 70.2 % (37.0-80.0); Nucleated Red Blood Cells % 0.1 %; Red Blood Cells 4.83 10^6/uL (4.0-5.20); White Blood Cell 5.6 10^3/uL (4.4-10.8)
[2023-10-13 10:15] LABS: Urine Bacteria FEW /hpf (None Seen); Urine Blood 1+ /uL (Negative); Urine Clarity Turbid (Clear); Urine Color Yellow (Yellow); Urine Mucus FEW (None Seen); Urine Protein, UAD TRACE (Negative); Urine Specific Gravity 1.023 (1.001-1.035); Urine Urobilinogen 2 mg/dL (Negative); Urine WBC 14 /hpf (0 - 5); Urine pH 5.5 (5.0-9.0)
[2023-10-13 10:57] LABS: Calcium 9.3 mg/dL (8.5-10.1)
[2023-10-13 11:02] LABS: BUN/Creatinine Ratio 15.9 (10.0-20.0)
[2023-10-13 11:04] LABS: Albumin 3.7 g/dL (3.2-4.8); Phosphorus 3.6 mg/dL (2.4-5.1)
[2023-10-13 11:13] LABS: Uric Acid 5.2 mg/dL (3.1-7.8)
[2023-10-13 11:16] LABS: Protein, Urine 44.1 mg/dL (0.0-11.9)
[2023-10-13 11:18] LABS: Creatinine, Urine 121.78 mg/dL (30.0-125.0); Urine Protein/Creatinine Ratio 0.36
== END | disposition home or self-care (01) ==
LOC: LAB 09:44
PROVIDERS: ATTEND Internal Medicine
DX: N18.31 Chronic kidney disease, stage 3a (principal); D63.1 Anemia in chronic kidney disease; M10.9 Gout, unspecified; E21.3 Hyperparathyroidism, unspecified; E78.5 Hyperlipidemia, unspecified; R80.9 Proteinuria, unspecified; R82.90 Unspecified abnormal findings in urine
CPT/HCPCS: 36415; 80069; 81001; 82306; 82570; 83970; 84156; 84550; 85025

== ENCOUNTER → 2023-11-24 | Outpatient (CLI) | payer OTHER ==
[~2023-11-24] MED LIST changes: +AMIO200T33 PO; +HYDR12.59 PO
[2023-11-24 14:38] LABS: Basophils # (auto) 0 10 ^3/uL (0-0.2); Basophils % (auto) 0.5 % (0.0-2.0); Eosinophils # (auto) 0.1 10 ^3/uL (0-0.8); Eosinophils % (auto) 1.1 % (0.0-7.0); Hematocrit 45.7 % (36.0-46.0); Hemoglobin 14.8 g/dL (12.2-16.2); Lymphocytes # (auto) 0.8 10 ^3/uL (0.4-5.4); Lymphocytes % (auto) 16.9 % (10.0-50.0); Mean Corpuscular Hemoglobin 29.5 pg (28.0-32.0); Mean Corpuscular Hgb Conc. 32.4 g/dL (32.0-36.0); Mean Corpuscular Volume 91.3 fL (80.0-100.0); Monocytes # (auto) 0.6 10 ^3/uL (0-1.3); Monocytes % (auto) 12.3 % (0.0-12.0); Neutrophils # (auto) 3.3 10 ^3/uL (1.6-8.6); Neutrophils % (auto) 69.2 % (37.0-80.0); Nucleated Red Blood Cells % 0.1 %; Red Blood Cells 5.01 10^6/uL (4.0-5.20); Red Cell Distribution Width 16.3 % (11.8-14.3); White Blood Cell 4.8 10^3/uL (4.4-10.8)
[2023-11-24 14:58] LABS: INR 1.03 (0.9-1.15); Partial Thromboplastin Time 24.9 SEC (24.5-34.5); Prothrombin Time 10.9 sec (9.3-11.8)
[2023-11-24 15:03] LABS: Alanine Aminotransferase 22 U/L (7-40); Alkaline Phosphatase 84 U/L (46-116); Anion Gap 2 (5-15); Aspartate Aminotransferase 15 U/L (13-40); Bilirubin, Total 0.4 mg/dL (0.2-1.0); Blood Urea Nitrogen 27 mg/dL (9-23); Carbon Dioxide 34 mmol/L (20-30); Chloride 106 mmol/L (98-107); Glucose 114 mg/dL (74-106); Potassium 3.9 mmol/L (3.5-5.1); Sodium 142 mmol/L (136-145); Total Protein 6.3 g/dL (5.7-8.2)
== END | disposition home or self-care (01) ==
LOC: LAB 14:23
PROVIDERS: ATTEND Internal Medicine
DX: Z01.812 Encounter for preprocedural laboratory examination (principal); E11.22 Type 2 diabetes mellitus with diabetic chronic kidney disease; N18.30 Chronic kidney disease, stage 3 unspecified; D63.1 Anemia in chronic kidney disease
CPT/HCPCS: 36415; 80053; 85025; 85610; 85730

== ENCOUNTER 2023-11-25 10:58 | Day surgery (SDC) | payer OTHER ==
[2023-11-25] VITALS (8 sets, daily range): BP systolic 107–131; BP diastolic 57–70; PULSE 58–68; RESP 12–24; O2SAT 88–98
[~2023-11-25] VITALS: Ht 162.6 cm; Wt 44.5 kg
[~2023-11-25 10:58] MED LIST changes: -AMIO200T13 PO
[2023-11-25] MEDS ORDERED: IODIXANOL 320MG/ML 100ML BTL IV ONE (12:37)
[2023-11-25] MEDS ORDERED: HEPARIN IN NS 1000Units/500mL 1,500 ML ONE (12:38)
[2023-11-25] MEDS ORDERED: ANGIOMAX 250 MG VIAL IV ONE (12:46)
[2023-11-25] MEDS ORDERED: HEPARIN SODIUM (PORCINE) 5000 UNITS/ML 1ML VIAL ONE (12:46)
[2023-11-25] MEDS ORDERED: VERAPAMIL 2.5MG/ML INJ 2ML VIAL IV ONE (12:46)
[2023-11-25] MEDS ORDERED: LIDOCAINE 2%HCL (LOCAL ANESTH.) INJ 20ML MDV ONE (12:47)
[2023-11-25] MEDS ORDERED: fentaNYL CITRATE 100 MCG/2 ML VL ONE (12:47)
[2023-11-25] MEDS ORDERED: MIDAZOLAM HCL 2MG/2ML 2ml VIAL (1mg/ml) ONE (12:47)
[2023-11-25] MEDS ORDERED: SODIUM CHL 0.9% 0 ML ONE (12:47)
== END 2023-11-25 15:35 | disposition home or self-care (01) ==
LOC: CATH 10:58
PROVIDERS: ATTEND Internal Medicine
DX: I25.10 Atherosclerotic heart disease of native coronary artery without angina pectoris (principal); R07.9 Chest pain, unspecified; Z79.82 Long term (current) use of aspirin; Z79.899 Other long term (current) drug therapy; Z95.5 Presence of coronary angioplasty implant and graft
CPT/HCPCS: 93458; C1769; C1887; C1894; J1644; J2250; J3010; Q9967; 99152

== ENCOUNTER → 2024-02-16 | Outpatient (CLI) | payer OTHER ==
[2024-02-16 11:53] LABS: Urine Bacteria None Seen /hpf (None Seen)
[2024-02-16 11:56] LABS: Basophils # (auto) 0 10 ^3/uL (0-0.2); Basophils % (auto) 0.5 % (0.0-2.0); Eosinophils # (auto) 0 10 ^3/uL (0-0.8); Eosinophils % (auto) 0.3 % (0.0-7.0); Hematocrit 47.8 % (36.0-46.0); Hemoglobin 15.3 g/dL (12.2-16.2); Lymphocytes # (auto) 0.7 10 ^3/uL (0.4-5.4); Lymphocytes % (auto) 13.8 % (10.0-50.0); Mean Corpuscular Hemoglobin 28.8 pg (28.0-32.0); Mean Corpuscular Hgb Conc. 32.1 g/dL (32.0-36.0); Mean Corpuscular Volume 89.7 fL (80.0-100.0); Monocytes # (auto) 0.4 10 ^3/uL (0-1.3); Monocytes % (auto) 9.2 % (0.0-12.0); Neutrophils # (auto) 3.6 10 ^3/uL (1.6-8.6); Neutrophils % (auto) 76.2 % (37.0-80.0); Platelet Count (auto) 168 10^3/uL (140-450); Red Blood Cells 5.33 10^6/uL (4.0-5.20); Red Cell Distribution Width 16.9 % (11.8-14.3); White Blood Cell 4.7 10^3/uL (4.4-10.8)
[2024-02-16 12:17] LABS: Urine Blood Negative /uL (Negative); Urine Clarity Clear (Clear); Urine Color Yellow (Yellow); Urine Protein, UAD TRACE (Negative); Urine Specific Gravity 1.023 (1.001-1.035); Urine Urobilinogen 2 mg/dL (Negative); Urine WBC 2 /hpf (0 - 5); Urine pH 5.5 (5.0-9.0)
[2024-02-16 12:32] LABS: Potassium 4.5 mmol/L (3.5-5.1)
[2024-02-16 12:33] LABS: Calcium 9.2 mg/dL (8.7-10.4)
[2024-02-16 12:37] LABS: Uric Acid 4.3 mg/dL (3.1-7.8)
[2024-02-16 12:38] LABS: BUN/Creatinine Ratio 17.1 (10.0-20.0)
[2024-02-16 12:41] LABS: Phosphorus 3.6 mg/dL (2.4-5.1)
[2024-02-16 12:57] LABS: Creatinine, Urine 114.88 mg/dL (30.0-125.0)
== END | disposition home or self-care (01) ==
LOC: LAB 11:40
PROVIDERS: ATTEND Internal Medicine
DX: E11.21 Type 2 diabetes mellitus with diabetic nephropathy (principal); E11.22 Type 2 diabetes mellitus with diabetic chronic kidney disease; N18.30 Chronic kidney disease, stage 3 unspecified; D63.1 Anemia in chronic kidney disease; E55.9 Vitamin D deficiency, unspecified; M10.9 Gout, unspecified; E21.3 Hyperparathyroidism, unspecified; R80.9 Proteinuria, unspecified; N39.0 Urinary tract infection, site not specified
CPT/HCPCS: 36415; 80069; 81001; 82043; 82570; 83970; 84550; 85025

== ENCOUNTER → 2024-03-21 | Outpatient (CLI) | payer OTHER ==
[2024-03-21 10:26] LABS: Urine Bacteria None Seen /hpf (None Seen)
[2024-03-21 10:31] LABS: Basophils # (auto) 0 10 ^3/uL (0-0.2); Basophils % (auto) 0.4 % (0.0-2.0); Eosinophils # (auto) 0 10 ^3/uL (0-0.8); Eosinophils % (auto) 0.2 % (0.0-7.0); Hematocrit 52.4 % (36.0-46.0); Hemoglobin 16.3 g/dL (12.2-16.2); Lymphocytes # (auto) 0.7 10 ^3/uL (0.4-5.4); Mean Corpuscular Hemoglobin 28.2 pg (28.0-32.0); Mean Corpuscular Hgb Conc. 31.2 g/dL (32.0-36.0); Mean Corpuscular Volume 90.3 fL (80.0-100.0); Monocytes # (auto) 0.4 10 ^3/uL (0-1.3); Monocytes % (auto) 7.8 % (0.0-12.0); Neutrophils % (auto) 78.6 % (37.0-80.0); Nucleated Red Blood Cells % 0.1 %; Platelet Count (auto) 183 10^3/uL (140-450); Red Cell Distribution Width 16.7 % (11.8-14.3); Urine Blood Negative /uL (Negative); Urine Clarity Clear (Clear); Urine Color Light-Yellow (Yellow); Urine Protein, UAD Negative (Negative); Urine Specific Gravity 1.011 (1.001-1.035); Urine Urobilinogen Normal (Negative); Urine WBC <1 /hpf (0 - 5)
[2024-03-21 11:54] LABS: Alanine Aminotransferase 30 U/L (7-40); Alkaline Phosphatase 90 U/L (46-116); Anion Gap 5 (5-15); Aspartate Aminotransferase 26 U/L (13-40); Blood Urea Nitrogen 29 mg/dL (9-23); Calcium 9.6 mg/dL (8.7-10.4); Carbon Dioxide 34 mmol/L (20-31); Chloride 104 mmol/L (98-107); Cholesterol 142 mg/dL (< 200); Glucose 88 mg/dL (74-106); HDL Cholesterol 71 mg/dL (40-59); LDL Cholesterol 47 mg/dL (< 100); Sodium 143 mmol/L (136-145); Triglycerides 72 mg/dL (< 150)
[2024-03-21 11:55] LABS: Bilirubin, Total 0.7 mg/dL (0.2-1.0); Total Protein 6.7 g/dL (5.7-8.2)
[2024-03-21 12:38] LABS: T3 Total 1.02 ng/mL (0.60-1.81)
[2024-03-21 12:39] LABS: Free T4 (Free Thyroxine) 1.39 ng/dL (0.89-1.76)
== END | disposition home or self-care (01) ==
LOC: LAB 10:10
PROVIDERS: ATTEND Internal Medicine
DX: Z00.01 Encounter for general adult medical examination with abnormal findings (principal); I12.9 Hypertensive chronic kidney disease with stage 1 through stage 4 chronic kidney disease, or unspecified chronic kidney disease; N18.32 Chronic kidney disease, stage 3b; E78.5 Hyperlipidemia, unspecified
CPT/HCPCS: 36415; 80053; 80061; 81001; 83036; 84439; 84480; 85025

== ENCOUNTER 2024-04-08 11:07 | Inpatient (IN) | payer OTHER ==
[~2024-04-08] VITALS: Ht 162.6 cm; Wt 52.2 kg
[~2024-04-08 11:07] MED LIST changes: +BENA-36 PO; +FURO20TA3 PO; +LATA0.0020 OP
--- NOTE | 2024-04-08 11:41 | ED.PDOC ---
SOB-HPI HPI Comments 74 y.o female with PMH of right kidney cancer, esophageal replacement, presents to the ED for a chief complaint of SOB that started one month ago. Patient brought in by son who reports SOB worsened last night, worse when patient is laying flat. Patient is currently saturating in the 70% room air, was placed on 6 liters NC here with saturation levels increasing to 97%. Patient denies any respiratory illnesses, home oxygen use, chest pain, chills, fever. Patient also presents with bilateral leg swelling that presented one month ago as well. Chief Complaint: Shortness of Breath Time Seen by MD: 11:12 Primary Care Provider: KAY Walters notes: Nurses Notes, Medications, Allergies Information Source: Patient, Relative (son) Mode of Arrival: Wheelchair Severity: Moderate Timing: Months (1) Duration: Since onset Context: At Rest PE Risk Factors: None History of: None Modifying Factors: Nothing; Exertion, Laying flat Associated Signs and Symptoms: None Past Medical History PAST MEDICAL HISTORY: Cancer (right kidney ), HTN Surgical History: PTCA Surgical History (Other): right kidney removal, esophagus replacement SENIOR CHEMICAL ENGINEER History: No Pertinent SENIOR CHEMICAL ENGINEER History Family History Family History: Reviewed,noncontributory to illness Social History Smoker: Non-Smoker Alcohol: Denies ETOH Use Drugs: Denies Drug Use Lives In: Home Constitutional: denies: chills, diaphoresis, fatigue, fever, malaise, sweats, weakness, others EENTM: denies: blurred vision, double vision, ear bleeding, ear discharge, ear drainage, ear pain, ear ringing, eye pain, eye redness, hearing loss, mouth pain, mouth swelling, nasal discharge, nose bleeding, nose congestion, nose pain, photophobia, tearing, throat pain, throat swelling, voice changes, others Respiratory: reports: SOB at rest, shortness of breath, SOB with excertion; denies: cough, hemoptysis, orthopnea, stridor, wheezing, others Cardiovascular: denies: chest pain, dizzy spells, diaphoresis, Dyspnea on exertion, edema, irregular heart beat, left arm pain, lightheadedness, palpitations, PND, syncope, others Gastrointestinal: denies: abdomen distended, abdominal pain, blood streaked bowels, constipated, diarrhea, dysphagia, difficulty swallowing, hematemesis, melena, nausea, poor appetite, poor fluid intake, rectal bleeding, rectal pain, vomiting, others Genitourinary: denies: abnormal vagina bleeding, burning, dyspareunia, dysuria, flank pain, frequency, hematuria, incontinence, pain, , vagina discharge, urgency, others Neurological: denies: dizziness, fainting, headache, left sided numbness, left sided weakness, numbness, paresthesia, pre-existing deficit, right sided numbnes s, right sided weakness, seizure, speech problems, tingling, tremors, weakness, others Musculoskeletal: denies: back pain, gout, joint pain, joint swelling, muscle pain, muscle stiffness, neck pain, others Integumetry: denies: bruises, change in color, change in hair/nails, dryness, laceration, lesions, lumps, rash, wounds, others Allergic/Immunocompromised: denies: Difficulty Healing, Frequent Infections, Hives, Itching, others Hematologic/Lymphatic: denies: anemia, blood clots, easy bleeding, easy bruising, swollen glands, others Endocrine: denies: excessive hunger, excessive sweating, excessive thirst, excessive urination, flushing, intolerance to cold, intolerance to heat, unexplained weight gain, unexplained weight loss, others Psychiatric: denies: anxiety, bipolar disorder, depression, hopeless, panic disorder, schizophrenia, sleepless, suicidal, others All Other Systems: Reviewed and Negative Physical Exam General Appearance: Moderate Distress HEENT: Normal ENT Inspection, Pharynx Normal, TMs Normal Neck: Full Range of Motion, Non-Tender, Normal, Normal Inspection Respiratory: Chest Non-Tender, Lungs Clear, No Accessory Muscle Use, No Respiratory Distress, Normal Breath Sounds Cardiovascular: No Edema, No JVD, No Murmur, No Gallop, Normal Peripheral Pulses, Regular Rate/Rhythm Breast Exam: Deferred Gastrointestinal: No Organomegaly, Non Tender, No Pulsatile Mass, Normal Bowel Sounds, Soft Genitalia: Deferred Pelvic: Deferred Rectal: Deferred Extremities: Other (3+ pitting edema bilaterally ) Musculoskeletal : Apperance: Normal Neurologic: Alert, tripe scraper II-XII nml as Tested, No Motor Deficits, Normal Affect, Normal Mood, No Sensory Deficits Cerebellar Function: Normal Reflexes: Normal Skin: Dry, Normal Color, Warm Lymphatic: No Adenopathy EKG EKG : Pulse Rate (adult): 82 [place]: Normal Cardiac Rhythm: NSR Block: None Hypertrophy: None ST: Normal Was a procedure done? Was a procedure done?: No Differential Dx Differential Diagnosis: Asthma, Bronchitis, COPD, Pneumonia, Respiratory Distress, URI X-Ray, Labs, Meds, VS Vital Signs Date Time Temp Pulse Resp B/P (MAP) Pulse Ox O2 Delivery O2 Flow Rate FiO2 04/08/24 16:00 72 15 115/66 (82) 100 04/08/24 15:01 73 20 107/74 (85) 100 04/08/24 14:00 73 17 117/58 (77) 100 04/08/24 13:55 73 17 100 Nasal Cannula* 5 40 04/08/24 13:00 73 17 121/67 (85) 100 04/08/24 12:00 97.8 78 20 114/62 (79) 100 97.8 04/08/24 12:00 117/78 04/08/24 11:23 98.3 86 16 105/61 (76) 97 04/08/24 11:22 16 97 Nasal Cannula* 6 44 04/08/24 11:21 82 Lab Test 04/08/24 15:33 04/08/24 14:26 04/08/24 12:48 04/08/24 11:36 Range/Units Urine Color Light-yellow Yellow Urine Clarity Clear Clear Urine pH 5.0 5.0-9.0 Urine Specific [place] 1.011 1.001-1.035 Urine Protein Trace H Negative Urine Ketones Negative Negative Urine Blood Negative Negative /uL Urine Nitrite Negative Negative Urine Bilirubin Negative Negative Urine Urobilinogen Normal Negative mg/dL Urine Leukocyte Esterase Negative Negative /uL Urine RBC <1 0 - 4 /hpf Urine WBC <1 0 - 5 /hpf Urine Squamous Epithelial Cells Few <5 /hpf Urine Bacteria None seen None Seen /hpf Urine Hyaline Casts Few 0 - 2 /lpf Urine Glucose Normal Normal mg/dL Troponin I High Sensitivity 19 29 32 </=34 ng/L White Blood Count 5.8 4.4-10.8 10^3/uL Red Blood Count 5.68 H 4.0-5.20 10^6/uL Hemoglobin 16.0 12.2-16.2 g/dL Hematocrit 51.3 H 36.0-46.0 % Mean Corpuscular Volume 90.2 80.0-100.0 fL Mean Corpuscular Hemoglobin 28.1 28.0-32.0 pg Mean Corpuscular Hemoglobin Concent 31.2 L 32.0-36.0 g/dL Red Cell Distribution Width 16.5 H 11.8-14.3 % Platelet Count 199 140-450 10^3/uL Mean Platelet Volume 7.9 6.9-10.8 fL Neutrophils (%) (Auto) 83.0 H 37.0-80.0 % Lymphocytes (%) (Auto) 7.1 L 10.0-50.0 % Monocytes (%) (Auto) 9.2 0.0-12.0 % Eosinophils (%) (Auto) 0.2 0.0-7.0 % Basophils (%) (Auto) 0.5 0.0-2.0 % Neutrophils # (Auto) 4.8 1.6-8.6 10 ^3/uL Lymphocytes # (Auto) 0.4 0.4-5.4 10 ^3/uL Monocytes # (Auto) 0.5 0-1.3 10 ^3/uL Eosinophils # (Auto) 0 0-0.8 10 ^3/uL Basophils # (Auto) 0 0-0.2 10 ^3/uL Nucleated Red Blood Cells 0.4 % Sodium Level 142 136-145 mmol/L Potassium Level 5.3 H 3.5-5.1 mmol/L Chloride Level 104 98-107 mmol/L Carbon Dioxide Level 30 20-31 mmol/L Anion Gap 8 5-15 Blood Urea Nitrogen 54 H 9-23 mg/dL Creatinine 2.49 H 0.550-1.02 mg/dL Glomerular Filtration Rate Calc 20 >90 mL/min BUN/Creatinine Ratio 21.7 H 10.0-20.0 Serum Glucose 112 H 74-106 mg/dL Calcium Level 9.2 8.7-10.4 mg/dL B-Type Natriuretic Peptide 1359.49 0-100 pg/mL Current Medications Medications (Trade) Dose Ordered Sig/Carol Route Start Time Stop Time Status Last Admin Furosemide (Lasix Injection) 40 mg ONCE ONCE IV 04/08/24 11:15 04/08/24 11:17 DC 04/08/24 12:00 Time of 1ST Reevaluation: 11:37 Reevaluation 1ST: Unchanged Time of 2ND Reevaluation: 13:00 Reevaluation 2ND: Improved Time of 3RD Reevaluation: 16:25 Reevaluation 3RD: Improved Patient Education/Counseling: Diagnosis, Treatment, Prognosis Family Education/Counseling: Diagnosis, Treatment, Prognosis Additional Information External Notes: 03/21/24- Outpatient B arterial Duplex and lab, 05/20/23- Skin tear of the hand without complications Ordered Test: CBC, BMP, BNP, CXR Reviewed Result: LAB including Troponin, EKG, Covid and Influenza A+B swabs Independent Historian: Son Interpreted results: CXR- agreed with radiologist-IMPRESSION: 1. Pulmonary interstitial edema. 2. Small bilateral pleural effusions. Discuss tx/ results: Patient, Son, and medical personnel Pt has acute on chronic chf and acute on chronic renal failure. she will be admitted for further treatments Departure 1 Departure Time of Disposition: 16:26 Impression: Primary Impression: CHF (congestive heart failure) Qualified Codes: I50.23 - Acute on chronic systolic (congestive) heart failure Additional Impression: Renal failure Qualified Codes: N19 - Unspecified kidney failure Disposition: ADMITTED INPATIENT Condition: Stable Critical Care Note Critical Care Time?: Yes (90 min-critical care time only) Critical care comment: due to concerns for pt's condition deteriorating, her care required my highest level of attention and readiness to intervene. i assessed her, ordered the proper tests and treatemtns, reassessed her, communicated with [facility] personnel, consulted with consultants, reviewed her test results, reassessed her response, formulated a treatment plan. the time includes at least 50% face-face interaction and does not include any procedures Stability Stability form required: No I personally scribed for VITO MACK MD ([facility]) on 04/08/24 at 11:41. Electronically submitted by Priscilla Kemp ([employer]). I personally scribed for VITO MACK MD ([facility]) on 04/08/24 at 11:51. Electronically submitted by Priscilla Kemp ([employer]). I personally scribed for VITO MACK MD ([employer]) on 04/08/24 at 13:00. Electronically submitted by Priscilla Kemp ([employer]). VITO MACK MD Apr 08, 2024 11:41
[2024-04-08 11:55] LABS: Basophils # (auto) 0 10 ^3/uL (0-0.2); Eosinophils # (auto) 0 10 ^3/uL (0-0.8); Lymphocytes # (auto) 0.4 10 ^3/uL (0.4-5.4); Lymphocytes % (auto) 7.1 % (10.0-50.0); Monocytes # (auto) 0.5 10 ^3/uL (0-1.3); Nucleated Red Blood Cells % 0.4 %
[2024-04-08 11:59] LABS: Chloride 104 mmol/L (98-107); Sodium 142 mmol/L (136-145)
[2024-04-08 12:00] LABS: Anion Gap 8 (5-15); Carbon Dioxide 30 mmol/L (20-31)
[2024-04-08] MEDS: FUROSEMIDE 40 MG/4 ML VIAL IV ONE (12:00)
[2024-04-08 12:01] LABS: Calcium 9.2 mg/dL (8.7-10.4)
[2024-04-08 12:05] LABS: BUN/Creatinine Ratio 21.7 (10.0-20.0)
[2024-04-08 12:08] LABS: Basophils % (auto) 0.5 % (0.0-2.0); Eosinophils % (auto) 0.2 % (0.0-7.0); Hematocrit 51.3 % (36.0-46.0); Mean Corpuscular Hemoglobin 28.1 pg (28.0-32.0); Mean Corpuscular Hgb Conc. 31.2 g/dL (32.0-36.0); Mean Corpuscular Volume 90.2 fL (80.0-100.0); Monocytes % (auto) 9.2 % (0.0-12.0); Neutrophils # (auto) 4.8 10 ^3/uL (1.6-8.6); Platelet Count (auto) 199 10^3/uL (140-450); Red Blood Cells 5.68 10^6/uL (4.0-5.20); Red Cell Distribution Width 16.5 % (11.8-14.3); White Blood Cell 5.8 10^3/uL (4.4-10.8)
--- NOTE | 2024-04-08 12:12 | DVH ---
CHEST RADIOGRAPH Indication: SOB Technique: Single frontal view of the chest was obtained Comparison: CHEST PORTABLE on DOS: 03/03/22, EKG on DOS: 03/03/22 FINDINGS: Lines and Tubes: None Lungs: There is bilateral interstitial prominence. Pleura: Small bilateral pleural effusions. No pneumothorax. Cardiomediastinal contours: Unremarkable Bones: No acute osseous abnormality. Status post median sternotomy. IMPRESSION: 1. Pulmonary interstitial edema. 2. Small bilateral pleural effusions.
[2024-04-08 12:13] LABS: Blood Urea Nitrogen 54 mg/dL (9-23); Glucose 112 mg/dL (74-106); Potassium 5.3 mmol/L (3.5-5.1)
[2024-04-08 13:55] VITALS: PULSE 73; RESP 17; O2SAT 100
[2024-04-08 15:34] LABS: Urine Bacteria None Seen /hpf (None Seen)
[2024-04-08 15:43] LABS: Urine Blood Negative /uL (Negative); Urine Clarity Clear (Clear); Urine Color Light-Yellow (Yellow); Urine Hyaline Cast FEW /lpf (0 - 2); Urine Protein, UAD TRACE (Negative); Urine Specific Gravity 1.011 (1.001-1.035); Urine Urobilinogen Normal (Negative); Urine WBC <1 /hpf (0 - 5)
--- NOTE | 2024-04-08 17:21 | DVHHP2 ---
History of Present Illness Reason for Visit: Shortness of breaths History of Present Illness 74 year old female with past medical history of kidney cancer and esophageal replacement history of CHF hypertension comes into the ED for evaluation of severe shortness of breath patient states his shortness breath has been present a month on evaluation in the ED patient had multiple complaints including continue complaints of orthopnea patient unable to lay flat having trouble maintaining saturations and requiring O 2 saturations and O2 support patient also reports having leg swelling bilaterally patient recommended for admission further evaluation Cardiovascular: CHF, HTN Renal/: Chronic renal insuff, Acute renal failure Review of Systems Constitutional: Yes: Weakness; No: Fever, Chills, Sweats, Malaise, Other Eyes: No: Pain, Vision change, Conjunctivae inflammation, Eyelid inflammation, Other, Redness ENT: No: Ear pain, Ear discharge, Nose pain, Nose discharge, Nose congestion, Mouth pain, Mouth swelling, Throat pain, Throat swelling, Other Respiratory: Cough, Shortness of breath; No: Dry, SOB with excertion, Wheezing, Hemoptysis, Pleuritic Pain, Sputum, Wheezing, Other Cardiovascular: Chest Pain, Palpitations; No: Orthopnea, Paroxysmal Noc. Dyspnea, Edema, Lt Headedness, Other Gastrointestinal: No: Nausea, Vomiting, Abdominal Pain, Diarrhea, Constipation, Melena, Hematochezia, Other Genitourinary: No Dysuria, No Frequency, No Incontinence, No Hematuria, No Retention, No Other Musculoskeletal: No: other, neck pain, shoulder pain, arm pain, back pain, hand pain, leg pain, foot pain Skin: No: Rash, Lesions, Jaundice, Bruising, Other Neurological: No: Weakness, Numbness, Incoordination, Change in speech, Confusion, Seizures, Other Allergies: Coded Allergies: Iodine (Verified Allergy, Unknown, 03/03/22) Iron (Verified Allergy, Unknown, 03/03/22) Penicillins (Verified Allergy, Unknown, 03/03/22) Exam Vital Signs Vital Signs Date Time Temp Pulse Resp B/P (MAP) Pulse Ox O2 Delivery O2 Flow Rate FiO2 04/08/24 16:00 72 15 115/66 (82) 100 04/08/24 13:55 Nasal Cannula* 5 40 04/08/24 12:00 97.8 97.8 General Appearance: Alert, Oriented X3, severe distress HEENT: Atraumatic, PERRLA Respiratory: Clear to auscultation, Normal air movement Cardiovascular: Regular rate, Normal S1, Normal S2 Abdominal: Normal bowel sounds, Soft, No tenderness Extremities: No clubbing, No cyanosis, No edema (Pitting edema 3+) Skin: No rashes, No breakdown Neuro: Normal gait, Normal speech Psych/Mental Status: Mood NL Labs/Xrays Labs Test 04/08/24 15:33 04/08/24 14:26 04/08/24 11:36 Range/Units Urine Color Light-yellow Yellow Urine Clarity Clear Clear Urine pH 5.0 5.0-9.0 Urine Specific [place] 1.011 1.001-1.035 Urine Protein Trace H Negative Urine Ketones Negative Negative Urine Blood Negative Negative /uL Urine Nitrite Negative Negative Urine Bilirubin Negative Negative Urine Urobilinogen Normal Negative mg/dL Urine Leukocyte Esterase Negative Negative /uL Urine RBC <1 0 - 4 /hpf Urine WBC <1 0 - 5 /hpf Urine Squamous Epithelial Cells Few <5 /hpf Urine Bacteria None seen None Seen /hpf Urine Hyaline Casts Few 0 - 2 /lpf Urine Glucose Normal Normal mg/dL Troponin I High Sensitivity 19 </=34 ng/L White Blood Count 5.8 4.4-10.8 10^3/uL Red Blood Count 5.68 H 4.0-5.20 10^6/uL Hemoglobin 16.0 12.2-16.2 g/dL Hematocrit 51.3 H 36.0-46.0 % Mean Corpuscular Volume 90.2 80.0-100.0 fL Mean Corpuscular Hemoglobin 28.1 28.0-32.0 pg Mean Corpuscular Hemoglobin Concent 31.2 L 32.0-36.0 g/dL Red Cell Distribution Width 16.5 H 11.8-14.3 % Platelet Count 199 140-450 10^3/uL Mean Platelet Volume 7.9 6.9-10.8 fL Neutrophils (%) (Auto) 83.0 H 37.0-80.0 % Lymphocytes (%) (Auto) 7.1 L 10.0-50.0 % Monocytes (%) (Auto) 9.2 0.0-12.0 % Eosinophils (%) (Auto) 0.2 0.0-7.0 % Basophils (%) (Auto) 0.5 0.0-2.0 % Neutrophils # (Auto) 4.8 1.6-8.6 10 ^3/uL Lymphocytes # (Auto) 0.4 0.4-5.4 10 ^3/uL Monocytes # (Auto) 0.5 0-1.3 10 ^3/uL Eosinophils # (Auto) 0 0-0.8 10 ^3/uL Basophils # (Auto) 0 0-0.2 10 ^3/uL Nucleated Red Blood Cells 0.4 % Sodium Level 142 136-145 mmol/L Potassium Level 5.3 H 3.5-5.1 mmol/L Chloride Level 104 98-107 mmol/L Carbon Dioxide Level 30 20-31 mmol/L Anion Gap 8 5-15 Blood Urea Nitrogen 54 H 9-23 mg/dL Creatinine 2.49 H 0.550-1.02 mg/dL Glomerular Filtration Rate Calc 20 >90 mL/min BUN/Creatinine Ratio 21.7 H 10.0-20.0 Serum Glucose 112 H 74-106 mg/dL Calcium Level 9.2 8.7-10.4 mg/dL B-Type Natriuretic Peptide 1359.49 0-100 pg/mL Assessment/Plan Assessment/Plan Admit to [facility] Acute on chronic systolic CHF Patient was signs of overt fluid overload Shortness of breath Positive for orthopnea Patient to be started on b.i.d. diuretics Patient with elevated BNP greater than 1300 new line new line Chest x-ray shows signs of pulmonary edema Mild bilateral pulmonary effusion Acute renal failure History of kidney cancer History of hypertension Patient with elevated BUN creatinine History of hypertension Continue with patient's home medications Plan discussed with: Patient Problem List: (1) CHF (congestive heart failure) (2) Acute kidney injury (3) Renal failure (4) Hyperkalemia Date of Service: Apr 08, 2024 Billing Provider: JONAS KAY MD Common Visit Codes: [id number] INP/OBS CARE (HIGH) JONAS KAY MD Apr 08, 2024 17:21
[2024-04-08] MEDS ORDERED: DEXTROSE (50%) 50ML SYRG IV PRN (17:30)
[2024-04-08] MEDS ORDERED: ACETAMINOPHEN 325 MG TAB PO PRN (17:30)
[2024-04-08] MEDS ORDERED: MORPHINE SULFATE INJ 2 MG/ml SYRG IV PRN (17:30)
[2024-04-08] MEDS ORDERED: HYDROcodone-ACET 5/325MG TAB PO PRN (17:30)
[2024-04-08] MEDS ORDERED: MAALOX PLUS or MAALOX 30 ML PO PRN (17:30)
[2024-04-08] MEDS: SODIUM CHLORIDE 0.9% 1,000 ML IV SCH (17:53)
[2024-04-08 18:39] LABS: Basophils # (auto) 0 10 ^3/uL (0-0.2); Basophils % (auto) 0.4 % (0.0-2.0); Eosinophils # (auto) 0 10 ^3/uL (0-0.8); Eosinophils % (auto) 0.1 % (0.0-7.0); Hematocrit 46.8 % (36.0-46.0); Hemoglobin 14.4 g/dL (12.2-16.2); Lymphocytes # (auto) 0.5 10 ^3/uL (0.4-5.4); Lymphocytes % (auto) 10.6 % (10.0-50.0); Mean Corpuscular Hemoglobin 28.2 pg (28.0-32.0); Mean Corpuscular Hgb Conc. 30.7 g/dL (32.0-36.0); Mean Corpuscular Volume 91.8 fL (80.0-100.0); Monocytes # (auto) 0.7 10 ^3/uL (0-1.3); Monocytes % (auto) 14.4 % (0.0-12.0); Neutrophils # (auto) 3.7 10 ^3/uL (1.6-8.6); Neutrophils % (auto) 74.5 % (37.0-80.0); Nucleated Red Blood Cells % 0.5 %; Platelet Count (auto) 157 10^3/uL (140-450); Red Cell Distribution Width 16.4 % (11.8-14.3); White Blood Cell 4.9 10^3/uL (4.4-10.8)
[2024-04-08 18:42] LABS: Potassium 4.4 mmol/L (3.5-5.1); Sodium 143 mmol/L (136-145)
[2024-04-08 18:43] LABS: Anion Gap 7 (5-15); Carbon Dioxide 28 mmol/L (20-31)
[2024-04-08 18:46] LABS: Calcium 7.7 mg/dL (8.7-10.4); Chloride 108 mmol/L (98-107)
[2024-04-08 18:48] LABS: BUN/Creatinine Ratio 21.7 (10.0-20.0)
[2024-04-08 18:49] LABS: Blood Urea Nitrogen 47 mg/dL (9-23); Glucose 162 mg/dL (74-106)
[2024-04-08] MEDS: InsuLIN REG 1unit/0.01ml Soln (100units/ml) SC SCH (20:00)
[2024-04-08] MEDS: ACCU-CHEK COMFORT CURVE STRIP VI SCH (20:17)
[2024-04-08 20:25] LABS: Rapid Influenza A Negative (Negative); Rapid Influenza B Negative (Negative)
[2024-04-08 20:26] LABS: COVID19 ANTIGEN SOFIA FIA NEGATIVE (NEGATIVE)
[2024-04-08] MEDS: FUROSEMIDE 20 MG/2 ML VIAL IV SCH (21:55)
[2024-04-08] MEDS: ATORVASTATIN 20 MG TAB PO SCH (21:55)
[2024-04-09] VITALS (9 sets, daily range): BP systolic 91–108; BP diastolic 45–62; PULSE 69–82; RESP 14–18; TEMP 97.5–98; O2SAT 90–100
[2024-04-09] MEDS: ASPirin-EC 81 mg tab PO SCH (09:39)
[2024-04-09] MEDS: AMIODARONE HCL 200 MG TAB PO SCH (09:39)
[2024-04-09] MEDS: CLOPIDOGREL BISULFATE 75 MG TAB PO SCH (09:40)
--- NOTE | 2024-04-09 17:18 | DVHPN2 ---
Subjective Some shortness of breath Reviewed: Care Plan, H&P, Labs, Medications, Previous Orders, Radiology Changes from previous H/P or p: No Changes Objective Vitals Vital Signs Date Time Temp Pulse Resp B/P (MAP) Pulse Ox O2 Delivery O2 Flow Rate FiO2 04/09/24 13:00 98.0 75 16 108/49 (68) 100 98.0 04/09/24 07:30 Nasal Cannula* 4 36 Intake/Output Intake and Output 04/09/24 07:00 Intake Total 420 ml Balance 420 ml Intake Oral 0 ml IV Total 420 ml General Appearance: Alert, Oriented X3, Cooperative, mild distress HEENT: Atraumatic Lungs: Other (Few crackles bilateral lungs) Cardiovascular: Regular rate Abdomen: Normal bowel sounds Extremities: Other (1+ edema bilateral lower extremities with some) Medications Current Medications Medications Dose Ordered Sig/Carol Route Start Time Stop Time Status Last Admin Dose Admin Amiodarone HCl 200 mg DAILY PO 04/09/24 10:00 04/09/24 09:39 200 MG Aspirin 81 mg DAILY PO 04/09/24 10:00 04/09/24 09:39 81 MG Atorvastatin Calcium 40 mg HS PO 04/08/24 22:00 04/08/24 21:55 40 MG Clopidogrel Bisulfate 75 mg DAILY PO 04/09/24 10:00 04/09/24 09:40 75 MG Furosemide 20 mg BID IV 04/08/24 22:00 04/08/24 21:55 20 MG Diagnostic Test (Pha) 1 strip IQ4HR 04/08/24 20:00 04/09/24 15:58 1 STRIP Insulin Human Regular IQ4HR SC 04/08/24 20:00 Dextrose 50 ml UD PRN IV 04/08/24 17:30 Al Hydrox/Mg Hydrox/Simethicone 30 ml Q6HP PRN PO 04/08/24 17:30 Docusate Sodium 100 mg BIDPRN PRN PO 04/08/24 17:30 Acetaminophen 650 mg Q6HP PRN PO 04/08/24 17:30 Acetaminophen/ Hydrocodone Bitart 1 tab Q4HP PRN PO 04/08/24 17:30 Ondansetron HCl 4 mg Q4HP PRN IV 04/08/24 17:30 Morphine Sulfate 2 mg Q4HPRN PRN IV 04/08/24 17:30 Laboratory Results Laboratory Tests 04/08/24 18:17 Chemistry Test 04/08/24 18:17 Calcium Level 7.7 mg/dL (8.7-10.4) L Urinalysis Test 04/08/24 15:33 Urine Color Light-yellow (Yellow) Urine Clarity Clear (Clear) Urine pH 5.0 (5.0-9.0) Urine Specific [place] 1.011 (1.001-1.035) Urine Protein Trace (Negative) H Urine Ketones Negative (Negative) Urine Blood Negative /uL (Negative) Urine Nitrite Negative (Negative) Urine Bilirubin Negative (Negative) Urine Urobilinogen Normal mg/dL (Negative) Urine Leukocyte Esterase Negative /uL (Negative) Urine RBC <1 /hpf (0 - 4) Urine WBC <1 /hpf (0 - 5) Urine Squamous Epithelial Cells Few /hpf (<5) Urine Bacteria None seen /hpf (None Seen) Urine Hyaline Casts Few /lpf (0 - 2) Urine Glucose Normal mg/dL (Normal) Assessment/Plan Assessment/Plan Acute on chronic heart failure Bilateral lower extremity cellulitis more on the left than the right Acute kidney injury on top of chronic kidney disease stage 3 Hypertension Bilateral pulmonary edema and pleural effusion Prediabetes with A1c 6.2 Plan: Continue current plan of care. Antibiotic for the cellulitis. Repeat labs and x-rays. Further plan per orders Plan discussed with: Patient, Spouse Date of Service: Apr 09, 2024 Billing Provider: CLARKE EPSTEIN MD Common Visit Codes: [id number] INP/OBS CARE(HIGH) CLARKE EPSTEIN MD Apr 09, 2024 17:18
[2024-04-09] MEDS: DOXYCYCLINE 100 MG TAB/CAP PO SCH (21:54)
[2024-04-09] MEDS: SULFAMETHOX W/TRIMETH(800/160MG) DS TAB PO SCH (21:54)
[2024-04-10] VITALS (8 sets, daily range): BP systolic 91–131; BP diastolic 53–101; PULSE 69–97; RESP 16–20; TEMP 97.7–98.1; O2SAT 87–99
[2024-04-10 06:57] LABS: Basophils # (auto) 0 10 ^3/uL (0-0.2); Basophils % (auto) 0.1 % (0.0-2.0); Eosinophils # (auto) 0 10 ^3/uL (0-0.8); Hemoglobin 15.5 g/dL (12.2-16.2); Lymphocytes # (auto) 0.3 10 ^3/uL (0.4-5.4); Neutrophils # (auto) 5.9 10 ^3/uL (1.6-8.6); Nucleated Red Blood Cells % 1.2 %; White Blood Cell 7.2 10^3/uL (4.4-10.8)
[2024-04-10 07:00] LABS: Hematocrit 50.7 % (36.0-46.0); Lymphocytes % (auto) 3.9 % (10.0-50.0); Mean Corpuscular Hemoglobin 28.4 pg (28.0-32.0); Mean Corpuscular Hgb Conc. 30.6 g/dL (32.0-36.0); Mean Corpuscular Volume 92.8 fL (80.0-100.0); Monocytes # (auto) 1.1 10 ^3/uL (0-1.3); Monocytes % (auto) 14.7 % (0.0-12.0); Neutrophils % (auto) 81.3 % (37.0-80.0); Platelet Count (auto) 169 10^3/uL (140-450); Red Blood Cells 5.47 10^6/uL (4.0-5.20); Red Cell Distribution Width 16.9 % (11.8-14.3)
[2024-04-10 07:23] LABS: Alanine Aminotransferase 30 U/L (7-40); Albumin 3.5 g/dL (3.2-4.8); Alkaline Phosphatase 99 U/L (46-116)
[2024-04-10 07:24] LABS: Anion Gap 8 (5-15); Aspartate Aminotransferase 30 U/L (13-40); BUN/Creatinine Ratio 23.7 (10.0-20.0); Bilirubin, Total 0.6 mg/dL (0.2-1.0); Calcium 9.1 mg/dL (8.7-10.4); Carbon Dioxide 30 mmol/L (20-31); Chloride 103 mmol/L (98-107); Glucose 87 mg/dL (74-106); Sodium 141 mmol/L (136-145); Total Protein 5.8 g/dL (5.7-8.2)
[2024-04-10 07:57] LABS: Blood Urea Nitrogen 58 mg/dL (9-23); Potassium 5.9 mmol/L (3.5-5.1)
--- NOTE | 2024-04-10 11:10 | DVH ---
CLINICAL INFORMATION: 74 years old, Female; follow-up. TECHNIQUE: Single AP portable chest radiograph was obtained. COMPARISON: XY CHEST PORTABLE on DOS: 04/08/24, EKG on DOS: 03/03/22, CHEST PORTABLE on DOS: 03/03/22 FINDINGS: Small right pleural effusion with overlying atelectasis and consolidation is unchanged. Likely small left pleural effusion with overlying atelectasis and/or consolidation, also unchanged. No pneumothora x. Unchanged cardiomegaly with mild prominence of the pulmonary vasculature. No other significant int erval change. IMPRESSION: No significant interval change as detailed above.
--- NOTE | 2024-04-10 17:17 | DVHPN2 ---
Subjective Feels better today Reviewed: Care Plan, H&P, Labs, Medications, Previous Orders, Radiology Changes from previous H/P or p: No Changes Objective Vitals Vital Signs Date Time Temp Pulse Resp B/P (MAP) Pulse Ox O2 Delivery O2 Flow Rate FiO2 04/10/24 13:00 97.8 76 16 91/53 (66) 94 97.8 04/10/24 08:00 Nasal Cannula* 4 36 Intake/Output Intake and Output 04/10/24 07:00 Intake Total 2520 ml Output Total 150 ml Balance 2370 ml Intake Oral 2020 ml IV Total 500 ml Output Urine Total 150 ml General Appearance: Alert, Oriented X3, Cooperative, mild distress HEENT: Atraumatic Lungs: Other (Few crackles bilateral lungs) Cardiovascular: Regular rate Abdomen: Normal bowel sounds Extremities: Other (1+ edema bilateral lower extremities with some) Medications Current Medications Medications Dose Ordered Sig/Carol Route Start Time Stop Time Status Last Admin Dose Admin Amiodarone HCl 200 mg DAILY PO 04/09/24 10:00 04/10/24 08:33 200 MG Aspirin 81 mg DAILY PO 04/09/24 10:00 04/10/24 08:33 81 MG Atorvastatin Calcium 40 mg HS PO 04/08/24 22:00 04/09/24 21:54 40 MG Clopidogrel Bisulfate 75 mg DAILY PO 04/09/24 10:00 04/10/24 08:33 75 MG Furosemide 20 mg BID IV 04/08/24 22:00 04/10/24 08:34 20 MG Al Hydrox/Mg Hydrox/Simethicone 30 ml Q6HP PRN PO 04/08/24 17:30 Docusate Sodium 100 mg BIDPRN PRN PO 04/08/24 17:30 Acetaminophen 650 mg Q6HP PRN PO 04/08/24 17:30 Acetaminophen/ Hydrocodone Bitart 1 tab Q4HP PRN PO 04/08/24 17:30 Ondansetron HCl 4 mg Q4HP PRN IV 04/08/24 17:30 Morphine Sulfate 2 mg Q4HPRN PRN IV 04/08/24 17:30 Doxycycline Monohydrate 100 mg Q12HR PO 04/09/24 22:00 04/10/24 08:32 100 MG Trimethoprim/ Sulfamethoxazole 1 tab Q12HR PO 04/09/24 22:00 04/10/24 08:32 1 TAB Laboratory Results Laboratory Tests 04/10/24 05:37 Chemistry Test 04/10/24 05:37 Albumin 3.5 g/dL (3.2-4.8) Calcium Level 9.1 mg/dL (8.7-10.4) Total Protein 5.8 g/dL (5.7-8.2) Cardiac Markers Test 04/10/24 05:37 B-Type Natriuretic Peptide 1194.46 pg/mL (0-100) LFT Test 04/10/24 05:37 Alanine Aminotransferase (ALT) 30 U/L (7-40) Alkaline Phosphatase 99 U/L (46-116) Aspartate Amino Transferase (AST) 30 U/L (13-40) Total Bilirubin 0.6 mg/dL (0.2-1.0) Urinalysis Test 04/08/24 15:33 Urine Color Light-yellow (Yellow) Urine Clarity Clear (Clear) Urine pH 5.0 (5.0-9.0) Urine Specific [place] 1.011 (1.001-1.035) Urine Protein Trace (Negative) H Urine Ketones Negative (Negative) Urine Blood Negative /uL (Negative) Urine Nitrite Negative (Negative) Urine Bilirubin Negative (Negative) Urine Urobilinogen Normal mg/dL (Negative) Urine Leukocyte Esterase Negative /uL (Negative) Urine RBC <1 /hpf (0 - 4) Urine WBC <1 /hpf (0 - 5) Urine Squamous Epithelial Cells Few /hpf (<5) Urine Bacteria None seen /hpf (None Seen) Urine Hyaline Casts Few /lpf (0 - 2) Urine Glucose Normal mg/dL (Normal) Assessment/Plan Assessment/Plan Acute on chronic heart failure Bilateral lower extremity cellulitis more on the left than the right Acute kidney injury on top of chronic kidney disease stage 3 Hypertension Bilateral pulmonary edema and pleural effusion Prediabetes with A1c 6.2 Hyperkalemia Plan: Repeat potassium stat. We will give treatment if elevated. Plan discussed with: Patient, Spouse My Orders Orders - CLARKE EPSTEIN MD Procedure Category Date Status Time Doxycycline Tablet PHA 04/09/24 In Process (Vibramycin Tablet) 22:00 Sulfamethoxazole PHA 04/09/24 In Process W/Trimeth Tab (Bactrim 22:00 Chest Portable XY 04/10/24 Resulted 06:00 Potassium LAB 04/10/24 In Process 14:19 Date of Service: Apr 10, 2024 Billing Provider: CLARKE EPSTEIN MD Common Visit Codes: [id number] INP/OBS CARE(HIGH) CLARKE EPSTEIN MD Apr 10, 2024 17:17
[2024-04-10] MEDS: SODIUM ZIRCONIUM CYCL 10 GM PAK PO ONE (20:05)
[2024-04-11] VITALS (8 sets, daily range): BP systolic 91–136; BP diastolic 40–86; PULSE 72–80; RESP 16–18; TEMP 97.8–98.2; O2SAT 93–99
[2024-04-11] MEDS: DOCUSATE SOD 100 MG CAP PO PRN (03:10)
--- NOTE | 2024-04-11 10:57 | ECG ---
[facility] Test Date: 2024-04-08 Test Time: 11:21:02 Pat Name: XAVIER CESPEDES Department: ER Room: 0222T Gender: F Chief Estimator: RISHI : 1950 Requested By: VITO MACK Order Number: [id number] Reading MD: Benjamin Vanegas Measurements Intervals [place] Rate: 82 P: 82 MT: 178 QRS: 189 QRSD: 121 T: 25 QT: 400 QTc: 468 Interpretive Statements Sinus rhythm Nonspecific intraventricular conduction delay Abnormal lateral Q waves Anterior infarct, old Electronically Signed On 04-13-2024 16:08:14 PST by Benjamin Vanegas Please click the below link to view image of tracing.
[2024-04-11] MEDS: LORazepam 2MG/ML-1ML VIAL IV ONE (12:57)
--- NOTE | 2024-04-11 13:40 | DVH ---
PROCEDURE: MRI BRAIN HEAD WO CONTRAST INDICATION: rule out stroke EXAM DATE: 04/11/2024 01:07 PM COMPARISON: None TECHNIQUE: MRI of the brain without intravenous contrast. FINDINGS: Limited by motion. Diffusion weighted images of the brain demonstrate no evidence of acute infarction. There is no evidence of acute intracranial hemorrhage, extra-axial collection, mass effect, midline s hift, herniation or hydrocephalus. The ventricles, sulci and cisterns appear age appropriate. Patchy signal abnormality in the deep white matter most focal in the right frontal lobe. There are no signal abnormalities on the susceptibility weighted sequences. The major vascular flow voids are present. Patchy opacification of the bilateral mastoid air cells. The surrounding soft tissues and osseous st ructures are unremarkable. IMPRESSION: 1. Limited by significant motion. No acute ischemia. Patchy signal abnormality in the deep white mat ter most focal in the right frontal lobe could be related to chronic microvascular ischemic disease. Attention on follow-up is recommended. Bilateral mastoiditis. HS:Y
--- NOTE | 2024-04-11 16:31 | DVHPN2 ---
Subjective Patient is seen and examined at bedside, patient was currently on 5 L nasal cannula oxygen. Patient had some right upper extremity weakness which later resolved therefore MRI of the brain was done no evidence of acute ischemia. We will get CT of the chest. We will also get physical therapy. Reviewed: Care Plan, H&P, Labs, Medications, Previous Orders, Radiology Changes from previous H/P or p: No Changes Objective Vitals Vital Signs Date Time Temp Pulse Resp B/P (MAP) Pulse Ox O2 Delivery O2 Flow Rate FiO2 04/11/24 12:30 98.2 76 17 136/54 (81) 95 98.2 04/11/24 08:00 Oxymizer 8 N/A Intake/Output Intake and Output 04/11/24 07:00 Intake Total 1325 ml Output Total 500 ml Balance 825 ml Intake Oral 1325 ml Output Urine Total 500 ml # Voids 5 General Appearance: Alert, Oriented X3, Cooperative HEENT: Atraumatic Lungs: Other (Few crackles bilateral lungs) Cardiovascular: Regular rate Abdomen: Normal bowel sounds Extremities: Other (1+ edema bilateral lower extremities) Medications Current Medications Medications Dose Ordered Sig/Carol Route Start Time Stop Time Status Last Admin Dose Admin Amiodarone HCl 200 mg DAILY PO 04/09/24 10:00 04/11/24 11:00 200 MG Aspirin 81 mg DAILY PO 04/09/24 10:00 04/11/24 11:00 81 MG Atorvastatin Calcium 40 mg HS PO 04/08/24 22:00 04/10/24 21:47 40 MG Clopidogrel Bisulfate 75 mg DAILY PO 04/09/24 10:00 04/11/24 11:00 75 MG Furosemide 20 mg BID IV 04/08/24 22:00 04/11/24 11:00 20 MG Al Hydrox/Mg Hydrox/Simethicone 30 ml Q6HP PRN PO 04/08/24 17:30 Docusate Sodium 100 mg BIDPRN PRN PO 04/08/24 17:30 04/11/24 03:10 100 MG Acetaminophen 650 mg Q6HP PRN PO 04/08/24 17:30 Acetaminophen/ Hydrocodone Bitart 1 tab Q4HP PRN PO 04/08/24 17:30 Ondansetron HCl 4 mg Q4HP PRN IV 04/08/24 17:30 Morphine Sulfate 2 mg Q4HPRN PRN IV 04/08/24 17:30 Doxycycline Monohydrate 100 mg Q12HR PO 04/09/24 22:00 04/11/24 11:03 100 MG Trimethoprim/ Sulfamethoxazole 1 tab Q12HR PO 04/09/24 22:00 04/11/24 11:00 1 TAB Laboratory Results Laboratory Tests 04/10/24 05:37 04/11/24 08:15 Urinalysis Test 04/08/24 15:33 Urine Color Light-yellow (Yellow) Urine Clarity Clear (Clear) Urine pH 5.0 (5.0-9.0) Urine Specific [place] 1.011 (1.001-1.035) Urine Protein Trace (Negative) H Urine Ketones Negative (Negative) Urine Blood Negative /uL (Negative) Urine Nitrite Negative (Negative) Urine Bilirubin Negative (Negative) Urine Urobilinogen Normal mg/dL (Negative) Urine Leukocyte Esterase Negative /uL (Negative) Urine RBC <1 /hpf (0 - 4) Urine WBC <1 /hpf (0 - 5) Urine Squamous Epithelial Cells Few /hpf (<5) Urine Bacteria None seen /hpf (None Seen) Urine Hyaline Casts Few /lpf (0 - 2) Urine Glucose Normal mg/dL (Normal) Assessment/Plan Assessment/Plan Acute on chronic diastolic heart failure- Lasix Acute Resp failure- Titrate oxygen as tolerated Bilateral lower extremity cellulitis more on the left than the right- Abx; Doxy Acute kidney injury on top of chronic kidney disease stage 3- Monitor renal function Hypertension Bilateral pulmonary edema and pleural effusion- Lasix IV Prediabetes with A1c 6.2- 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 Hyperkalemia- Resolved Goals of care- FULL CODE critical care time 45 mins Plan discussed with: Patient My Orders Orders - GERRY VASQUEZ MD Procedure Category Date Status Time Brain Head Wo Contrast MRI 04/11/24 Resulted 12:[address] 04/11/24 Logged 14:06 Basic Metabolic Panel LAB 04/12/24 Verified 04:00 B-Type Natriuretic LAB 04/12/24 Verified Peptide 04:00 Magnesium LAB 04/12/24 Verified 04:00 Oob To Chair MASHA 04/11/24 Transmitted 16:26 Pt Request For Service PT 04/11/24 Transmitted 16:26 Date of Service: Apr 11, 2024 Billing Provider: GERRY VASQUEZ MD Common Visit Codes: [id number] CARE 30-74 MIN GERRY VASQUEZ MD Apr 11, 2024 16:31
--- NOTE | 2024-04-11 18:38 | DVH ---
EXAM: CT CHEST WITHOUT CONTRAST History: rule out pneumonia Comparison Study: None available TECHNIQUE: Multidetector CT of the chest was performed. Imaging was performed without IV contrast. Ax ial, coronal, and sagittal multiplanar reformats were obtained from the axial data set by the technol ogist. Radiation Dose : CTDI vol 8.11 mGy, DLP 262.91 mGy*cm. Findings: Lungs: Right lower lobe groundglass opacities Pleura: Small bilateral pleural effusions. Heart/Great vessels: Cardiomegaly. No pericardial effusion. Mediastinum: Unremarkable Soft tissues/Bones: Unremarkable The partially visualized upper abdomen is within normal limits. Impression: 1. Right lower lobe groundglass opacities favor an infectious/inflammatory etiology. 2. Small bilateral pleural effusions. 3. Cardiomegaly.
[2024-04-11] MEDS: AZTREONAM 1GM INJ 1 GM in D5W 5% 50 ML IV SCH (22:00)
[2024-04-12] VITALS (11 sets, daily range): BP systolic 96–122; BP diastolic 49–62; PULSE 70–102; RESP 16–20; TEMP 97.4–98.2; O2SAT 94–100
[2024-04-12 07:18] LABS: Anion Gap 7 (5-15); Carbon Dioxide 35 mmol/L (20-31); Chloride 101 mmol/L (98-107); Potassium 4.2 mmol/L (3.5-5.1); Sodium 143 mmol/L (136-145)
[2024-04-12 07:19] LABS: Calcium 9.2 mg/dL (8.7-10.4)
[2024-04-12 07:23] LABS: Glucose 76 mg/dL (74-106)
[2024-04-12 07:24] LABS: BUN/Creatinine Ratio 29.5 (10.0-20.0); Blood Urea Nitrogen 51 mg/dL (9-23); Magnesium 2.3 mg/dL (1.6-2.6)
[2024-04-12] MEDS ORDERED: LORazepam 2MG/ML-1ML VIAL IV ONE (11:15)
--- NOTE | 2024-04-12 13:30 | DVHINCON2 ---
Date of service: Apr 12, 2024 Reason for Consultation Acute kidney injury History of Present Illness 74 year old female hx solitary kidney after RIght nephrectomy in 2010 due to RCC, with Ckd 3b known to renal clinic by Dr. Wyatt p/w AYESHA. She is admitted for CHF nephrology called for elevated cr leve. On my exam patient was seated upright, with SOB with minimal exertion and highflo oxygen Past Surgical History nephrectomy Allergies: Coded Allergies: Iodine (Verified Allergy, Unknown, 03/03/22) Iron (Verified Allergy, Unknown, 03/03/22) Penicillins (Verified Allergy, Unknown, 03/03/22) Home Meds Active Scripts Atorvastatin Calcium (ATORVASTATIN CALCIUM) 20 Mg Tab, 40 MG PO HS for 30 Days, #60 TAB Prov:GERRY VASQUEZ MD 03/05/22 Aspirin (Aspirin Low Dose) 81 Mg Tab, 81 MG PO DAILY for 30 Days, #30 TAB Prov:GERRY VASQUEZ MD 03/05/22 Reported Medications Benazepril Hcl (Benazepril Hcl) 20 Mg Tab, 1 TAB PO DAILY for 90 Days, #90 04/11/24 Furosemide (Furosemide) 20 Mg Tab, 1 TAB PO DAILY for 60 Days, #60 04/11/24 Latanoprost (Xalatan) 0.005 % Gladis, 1 DROP OP QPM for 90 Days, #7.5 04/11/24 Hydrochlorothiazide (Hydrochlorothiazide) 12.5 Mg Cap, 12.5 MG PO DAILY for 30 Days, MG 11/24/23 Amiodarone Hcl (Amiodarone Hcl) 200 Mg Tab, 200 MG PO DAILY for 30 Days 11/24/23 Clopidogrel Bisulfate (CLOPIDOGREL) 75 Mg Tab, 1 TAB PO DAILY 03/04/22 Current Medications Current Medications Medications (Trade) Dose Ordered Sig/Caorl Route PRN Reason Start Time Stop Time Status Last Admin Aztreonam 1 gm/ Dextrose 50 ml @ 100 mls/hr Q8HR IV 04/11/24 22:00 04/12/24 05:29 Family History: Patient reports no known family medical history. Review of Systems SOB H&P Exam Vital Signs/I&O Vital Sign Date Time Temp Pulse Resp B/P (MAP) Pulse Ox O2 Delivery O2 Flow Rate FiO2 04/12/24 09:18 103/49 12/3/24 09:00 97.4 74 17 95 97.4 04/12/24 08:00 Oxymizer 8 N/A Intake and Output 04/11/24 04/12/24 19:00 07:00 Intake Total 460 ml 695 ml Output Total 2300 ml Balance 460 ml -1605 ml Intake Oral 460 ml 595 ml IV Total 100 ml Output Urine Total 2300 ml # Voids 3 # Bowel Movements 2 Physical Exam elderly female in distress + rales no pitting edema frail appearing thurston catheter Labs/Diagnostic Data Labs/Diagnostic Data Laboratory Tests Test 04/12/24 11:35 04/12/24 05:53 04/11/24 08:15 04/10/24 16:58 Range/Units D-Dimer, Quantitative 2.20 H 0.0-0.49 mg/L FEU Sodium Level 143 136-145 mmol/L Potassium Level 4.2 5.1 5.5 H 3.5-5.1 mmol/L Chloride Level 101 98-107 mmol/L Carbon Dioxide Level 35 H 20-31 mmol/L Anion Gap 7 5-15 Blood Urea Nitrogen 51 H 9-23 mg/dL Creatinine 1.73 H 0.550-1.02 mg/dL Glomerular Filtration Rate Calc 30 >90 mL/min BUN/Creatinine Ratio 29.5 H 10.0-20.0 Serum Glucose 76 74-106 mg/dL Calcium Level 9.2 8.7-10.4 mg/dL Magnesium Level 2.3 1.6-2.6 mg/dL B-Type Natriuretic Peptide 984.77 0-100 pg/mL Test 04/10/24 11:44 04/10/24 08:55 04/10/24 05:37 04/09/24 21:28 Range/Units POC Glucose 121 H 90 135 H 70-106 mg/dl White Blood Count 7.2 # 4.4-10.8 10^3/uL Red Blood Count 5.47 H 4.0-5.20 10^6/uL Hemoglobin 15.5 12.2-16.2 g/dL Hematocrit 50.7 H 36.0-46.0 % Mean Corpuscular Volume 92.8 80.0-100.0 fL Mean Corpuscular Hemoglobin 28.4 28.0-32.0 pg Mean Corpuscular Hemoglobin Concent 30.6 L 32.0-36.0 g/dL Red Cell Distribution Width 16.9 H 11.8-14.3 % Platelet Count 169 140-450 10^3/uL Mean Platelet Volume 8.0 6.9-10.8 fL Neutrophils (%) (Auto) 81.3 H 37.0-80.0 % Lymphocytes (%) (Auto) 3.9 L 10.0-50.0 % Monocytes (%) (Auto) 14.7 H 0.0-12.0 % Eosinophils (%) (Auto) 0.0 0.0-7.0 % Basophils (%) (Auto) 0.1 0.0-2.0 % Neutrophils # (Auto) 5.9 1.6-8.6 10 ^3/uL Lymphocytes # (Auto) 0.3 L 0.4-5.4 10 ^3/uL Monocytes # (Auto) 1.1 0-1.3 10 ^3/uL Eosinophils # (Auto) 0 0-0.8 10 ^3/uL Basophils # (Auto) 0 0-0.2 10 ^3/uL Nucleated Red Blood Cells 1.2 % Sodium Level 141 136-145 mmol/L Potassium Level 5.9 *H 3.5-5.1 mmol/L Chloride Level 103 98-107 mmol/L Carbon Dioxide Level 30 20-31 mmol/L Anion Gap 8 5-15 Blood Urea Nitrogen 58 #H 9-23 mg/dL Creatinine 2.45 H 0.550-1.02 mg/dL Glomerular Filtration Rate Calc 20 >90 mL/min BUN/Creatinine Ratio 23.7 H 10.0-20.0 Serum Glucose 87 74-106 mg/dL Calcium Level 9.1 8.7-10.4 mg/dL Total Bilirubin 0.6 0.2-1.0 mg/dL Aspartate Amino Transferase (AST) 30 13-40 U/L Alanine Aminotransferase (ALT) 30 7-40 U/L Alkaline Phosphatase 99 46-116 U/L B-Type Natriuretic Peptide 1194.46 0-100 pg/mL Total Protein 5.8 5.7-8.2 g/dL Albumin 3.5 3.2-4.8 g/dL Test 04/09/24 11:21 04/09/24 04:39 04/08/24 20:20 04/08/24 19:57 Range/Units POC Glucose 95 98 107 H 70-106 mg/dl Influenza Type A Antigen Negative Negative Influenza Type B Antigen Negative Negative SARS-CoV-2 Antigen (Rapid) Negative NEGATIVE Test 04/08/24 18:17 04/08/24 15:33 04/08/24 14:26 04/08/24 12:48 Range/Units White Blood Count 4.9 4.4-10.8 10^3/uL Red Blood Count 5.10 4.0-5.20 10^6/uL Hemoglobin 14.4 12.2-16.2 g/dL Hematocrit 46.8 H 36.0-46.0 % Mean Corpuscular Volume 91.8 80.0-100.0 fL Mean Corpuscular Hemoglobin 28.2 28.0-32.0 pg Mean Corpuscular Hemoglobin Concent 30.7 L 32.0-36.0 g/dL Red Cell Distribution Width 16.4 H 11.8-14.3 % Platelet Count 157 140-450 10^3/uL Mean Platelet Volume 7.9 6.9-10.8 fL Neutrophils (%) (Auto) 74.5 37.0-80.0 % Lymphocytes (%) (Auto) 10.6 10.0-50.0 % Monocytes (%) (Auto) 14.4 H 0.0-12.0 % Eosinophils (%) (Auto) 0.1 0.0-7.0 % Basophils (%) (Auto) 0.4 0.0-2.0 % Neutrophils # (Auto) 3.7 1.6-8.6 10 ^3/uL Lymphocytes # (Auto) 0.5 0.4-5.4 10 ^3/uL Monocytes # (Auto) 0.7 0-1.3 10 ^3/uL Eosinophils # (Auto) 0 0-0.8 10 ^3/uL Basophils # (Auto) 0 0-0.2 10 ^3/uL Nucleated Red Blood Cells 0.5 % Sodium Level 143 136-145 mmol/L Potassium Level 4.4 3.5-5.1 mmol/L Chloride Level 108 H 98-107 mmol/L Carbon Dioxide Level 28 20-31 mmol/L Anion Gap 7 5-15 Blood Urea Nitrogen 47 H 9-23 mg/dL Creatinine 2.17 H 0.550-1.02 mg/dL Glomerular Filtration Rate Calc 23 >90 mL/min BUN/Creatinine Ratio 21.7 H 10.0-20.0 Serum Glucose 162 H 74-106 mg/dL Calcium Level 7.7 L 8.7-10.4 mg/dL Urine Color Light-yellow Yellow Urine Clarity Clear Clear Urine pH 5.0 5.0-9.0 Urine Specific [place] 1.011 1.001-1.035 Urine Protein Trace H Negative Urine Ketones Negative Negative Urine Blood Negative Negative /uL Urine Nitrite Negative Negative Urine Bilirubin Negative Negative Urine Urobilinogen Normal Negative mg/dL Urine Leukocyte Esterase Negative Negative /uL Urine RBC <1 0 - 4 /hpf Urine WBC <1 0 - 5 /hpf Urine Squamous Epithelial Cells Few <5 /hpf Urine Bacteria None seen None Seen /hpf Urine Hyaline Casts Few 0 - 2 /lpf Urine Glucose Normal Normal mg/dL Troponin I High Sensitivity 19 29 </=34 ng/L Test 04/08/24 11:36 Range/Units White Blood Count 5.8 4.4-10.8 10^3/uL Red Blood Count 5.68 H 4.0-5.20 10^6/uL Hemoglobin 16.0 12.2-16.2 g/dL Hematocrit 51.3 H 36.0-46.0 % Mean Corpuscular Volume 90.2 80.0-100.0 fL Mean Corpuscular Hemoglobin 28.1 28.0-32.0 pg Mean Corpuscular Hemoglobin Concent 31.2 L 32.0-36.0 g/dL Red Cell Distribution Width 16.5 H 11.8-14.3 % Platelet Count 199 140-450 10^3/uL Mean Platelet Volume 7.9 6.9-10.8 fL Neutrophils (%) (Auto) 83.0 H 37.0-80.0 % Lymphocytes (%) (Auto) 7.1 L 10.0-50.0 % Monocytes (%) (Auto) 9.2 0.0-12.0 % Eosinophils (%) (Auto) 0.2 0.0-7.0 % Basophils (%) (Auto) 0.5 0.0-2.0 % Neutrophils # (Auto) 4.8 1.6-8.6 10 ^3/uL Lymphocytes # (Auto) 0.4 0.4-5.4 10 ^3/uL Monocytes # (Auto) 0.5 0-1.3 10 ^3/uL Eosinophils # (Auto) 0 0-0.8 10 ^3/uL Basophils # (Auto) 0 0-0.2 10 ^3/uL Nucleated Red Blood Cells 0.4 % Sodium Level 142 136-145 mmol/L Potassium Level 5.3 H 3.5-5.1 mmol/L Chloride Level 104 98-107 mmol/L Carbon Dioxide Level 30 20-31 mmol/L Anion Gap 8 5-15 Blood Urea Nitrogen 54 H 9-23 mg/dL Creatinine 2.49 H 0.550-1.02 mg/dL Glomerular Filtration Rate Calc 20 >90 mL/min BUN/Creatinine Ratio 21.7 H 10.0-20.0 Serum Glucose 112 H 74-106 mg/dL Calcium Level 9.2 8.7-10.4 mg/dL Troponin I High Sensitivity 32 </=34 ng/L B-Type Natriuretic Peptide 1359.49 0-100 pg/mL Assessment Acute kidney injury on ckd 3b ckd solitary kidney after hx nephrectomy in 2010 fluid overload likely in setting of CHF hyperkalemia resolved SOB agree with lasix IV q12 fluid restriction supportive care echo + dimer pending V/Q scan to rule out PE Plan discussed with: Patient KAREN OCASIO MD Apr 12, 2024 13:30
[2024-04-12] MEDS: LORazepam 2MG/ML-1ML VIAL IV ONE (14:11)
--- NOTE | 2024-04-12 15:07 | DVHPN2 ---
Subjective Patient is seen and examined at bedside, patient was currently on 6L Oxymizer. D-Dimer minimally elevated, unable to get VQ scan to r/o PE. Will start Lovenox. Cont present treatment. Spoke with Damion (family) and updated on plan of care. Reviewed: Care Plan, H&P, Labs, Medications, Previous Orders, Radiology Changes from previous H/P or p: No Changes Objective Vitals Vital Signs Date Time Temp Pulse Resp B/P (MAP) Pulse Ox O2 Delivery O2 Flow Rate FiO2 04/12/24 13:00 98.1 72 19 104/62 (76) 95 98.1 04/12/24 08:00 Oxymizer 8 N/A Intake/Output Intake and Output 04/12/24 07:00 Intake Total 1155 ml Output Total 2300 ml Balance -1145 ml Intake Oral 1055 ml IV Total 100 ml Output Urine Total 2300 ml # Voids 3 # Bowel Movements 2 General Appearance: Alert, Oriented X3, Cooperative HEENT: Atraumatic Lungs: Other (Few crackles bilateral lungs) Cardiovascular: Regular rate Abdomen: Normal bowel sounds Extremities: Other (1+ edema bilateral lower extremities) Medications Current Medications Medications Dose Ordered Sig/Carol Route Start Time Stop Time Status Last Admin Dose Admin Amiodarone HCl 200 mg DAILY PO 04/09/24 10:00 04/12/24 09:17 200 MG Aspirin 81 mg DAILY PO 04/09/24 10:00 04/12/24 09:17 81 MG Atorvastatin Calcium 40 mg HS PO 04/08/24 22:00 04/11/24 22:07 40 MG Clopidogrel Bisulfate 75 mg DAILY PO 04/09/24 10:00 04/12/24 09:17 75 MG Furosemide 20 mg BID IV 04/08/24 22:00 04/12/24 09:18 20 MG Al Hydrox/Mg Hydrox/Simethicone 30 ml Q6HP PRN PO 04/08/24 17:30 Docusate Sodium 100 mg BIDPRN PRN PO 04/08/24 17:30 04/11/24 03:10 100 MG Acetaminophen 650 mg Q6HP PRN PO 04/08/24 17:30 Acetaminophen/ Hydrocodone Bitart 1 tab Q4HP PRN PO 04/08/24 17:30 Ondansetron HCl 4 mg Q4HP PRN IV 04/08/24 17:30 Morphine Sulfate 2 mg Q4HPRN PRN IV 04/08/24 17:30 Doxycycline Monohydrate 100 mg Q12HR PO 04/09/24 22:00 04/12/24 09:17 100 MG Trimethoprim/ Sulfamethoxazole 1 tab Q12HR PO 04/09/24 22:00 04/12/24 09:17 1 TAB Aztreonam 1 gm/ Dextrose 50 ml @ 100 mls/hr Q8HR IV 04/11/24 22:00 04/12/24 05:29 100 MLS/HR Laboratory Results Laboratory Tests 04/10/24 05:37 04/12/24 05:53 Chemistry Test 04/12/24 05:53 Calcium Level 9.2 mg/dL (8.7-10.4) Magnesium Level 2.3 mg/dL (1.6-2.6) Coagulation Test 04/12/24 11:35 D-Dimer, Quantitative 2.20 mg/L FEU (0.0-0.49) H Cardiac Markers Test 04/12/24 05:53 B-Type Natriuretic Peptide 984.77 pg/mL (0-100) Urinalysis Test 04/08/24 15:33 Urine Color Light-yellow (Yellow) Urine Clarity Clear (Clear) Urine pH 5.0 (5.0-9.0) Urine Specific [place] 1.011 (1.001-1.035) Urine Protein Trace (Negative) H Urine Ketones Negative (Negative) Urine Blood Negative /uL (Negative) Urine Nitrite Negative (Negative) Urine Bilirubin Negative (Negative) Urine Urobilinogen Normal mg/dL (Negative) Urine Leukocyte Esterase Negative /uL (Negative) Urine RBC <1 /hpf (0 - 4) Urine WBC <1 /hpf (0 - 5) Urine Squamous Epithelial Cells Few /hpf (<5) Urine Bacteria None seen /hpf (None Seen) Urine Hyaline Casts Few /lpf (0 - 2) Urine Glucose Normal mg/dL (Normal) Assessment/Plan Assessment/Plan Acute on chronic diastolic heart failure- Lasix Possible PE??? Lovenox. 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
--- NOTE | 2024-04-12 15:38 | DVH ---
US BiLat Lower DVT HISTORY: dvt, SOB COMPARISON: US BILAT LOW EXT ART DUPLEX on DOS: 08/20/22 TECHNIQUE: Duplex Doppler evaluation of the deep venous system of the lower extremity from the common femoral veins, superficial femoral vein, great saphenous vein, deep femoral vein, popliteal vein, an d calf veins, including color Doppler and spectral/pulsed waveform analysis, was performed. FINDINGS: Right: - Common femoral vein: Compressible - Deep femoral vein: Compressible - Femoral vein: Compressible - Popliteal vein: Compressible - Posterior tibial vein: Waveforms present - Peroneal vein: Not seen. - Other: Nothing Left: - Common femoral vein: Compressible - Deep femoral vein: Compressible - Femoral vein: Compressible - Popliteal vein: Compressible - Posterior tibial vein: Waveforms present - Peroneal vein: Not seen. - Other: Nothing IMPRESSION: No right or left lower extremity deep venous thrombosis.
[2024-04-12] MEDS: ENOXAPARIN SOD 60 MG/0.6 ML SYRINGE SC ONE (17:04)
[2024-04-12] MEDS: ALBUTEROL SULF 2.5 MG/0.5ML(0.5%) NEB SOLN NEB PRN (20:13)
[2024-04-12] MEDS: IPRATROPIUM BROM 0.5 MG/2.5ML INH SOL NEB PRN (20:13)
[2024-04-12] MEDS: ACETYLCYSTEINE 20%(200MG/ML) SOL 4ML NEB SCH (20:13)
--- NOTE | 2024-04-12 22:07 | DVHSR ---
APPROVED REPORT EXAM: Two-dimensional and M-mode echocardiogram with Doppler and color Doppler. Blood Pressure: 122/60 mmHg INDICATION CHF RISK FACTORS Height: 64, Weight: 124 DIMENSIONS LVDd (3.8-5.7cm)LA (2D)3.8 (1.9-4.0cm)Aortic Root (2.0-3.7cm) EF (%) 73.0 (55-70%)Rt. Atrium5.1 (1.9-4.0cm)Asc. Aorta cm Mitral Valve MitralMitral Stenosis E wave1.05m/sMV Mean GR.mmHg A wave0.62m/sMV Peak GR.mmHg E/A ratio1.72D MVAcm2 DECEL [id number] 1/2 Momf75nf IVRTmsDop MVA4.31cm2 Aortic Valve Aortic ValveAortic Stenosis V11.40m/Jose Enrique Mean GR.8mmHg V21.80m/Jose Enrique Peak GR.13mmHg Tricuspid Valve TR Velocity3.80m/s [id number] Other Information Technically limited study due to body habitus and patient position. Patient was laying flat during e xam. Only able to obtain apical views. Conclusion Normal left ventricular size and dimension. Normal left ventricular systolic function with estimated ejection fraction 55%. There is a grade 1 diastolic dysfunction. Normal right ventricular size and dimension. Normal right ventricular systolic function. Severely e levated right ventricular systolic pressure 60 mm of mercury. Moderately dilated right atrium. Normal-sized left atrium. Normal aortic valve structure and function. Normal mitral valve structure and function. Normal tricuspid valve structure and function. The pulmonary valve is grossly normal. No pericardial effusion.
[2024-04-13] VITALS (13 sets, daily range): BP systolic 104–118; BP diastolic 43–56; PULSE 64–88; RESP 14–19; TEMP 97.4–97.9; O2SAT 78–100
--- NOTE | 2024-04-13 06:46 | DVH ---
CHEST RADIOGRAPH Indication: sob Technique: Single AP portable chest radiograph was obtained. COMPARISON: XY CHEST PORTABLE on DOS: 04/10/24, XY CHEST PORTABLE on DOS: 04/08/24, EKG on DOS: , XY CHEST PORTABLE on DOS: 04/10/24 FINDINGS: Small right pleural effusion with overlying atelectasis and consolidation is unchanged. Likely small left pleural effusion with overlying atelectasis and/or consolidation, also unchanged. No pneumothora x. Unchanged cardiomegaly with mild prominence of the pulmonary vasculature. No other significant int erval change. IMPRESSION: No significant interval change as detailed above.
[2024-04-13 06:52] LABS: Sodium 140 mmol/L (136-145)
[2024-04-13 06:54] LABS: Calcium 8.7 mg/dL (8.7-10.4)
[2024-04-13 06:55] LABS: Basophils # (auto) 0 10 ^3/uL (0-0.2); Basophils % (auto) 0.1 % (0.0-2.0); Eosinophils # (auto) 0 10 ^3/uL (0-0.8); Eosinophils % (auto) 0.3 % (0.0-7.0); Hematocrit 41.3 % (36.0-46.0); Hemoglobin 13.2 g/dL (12.2-16.2); Lymphocytes # (auto) 0.3 10 ^3/uL (0.4-5.4); Lymphocytes % (auto) 7.5 % (10.0-50.0); Mean Corpuscular Hemoglobin 28.3 pg (28.0-32.0); Mean Corpuscular Volume 88.6 fL (80.0-100.0); Monocytes # (auto) 0.7 10 ^3/uL (0-1.3); Monocytes % (auto) 15.1 % (0.0-12.0); Neutrophils # (auto) 3.6 10 ^3/uL (1.6-8.6); Nucleated Red Blood Cells % 0.5 %; Platelet Count (auto) 126 10^3/uL (140-450); Red Blood Cells 4.66 10^6/uL (4.0-5.20); Red Cell Distribution Width 15.4 % (11.8-14.3); White Blood Cell 4.6 10^3/uL (4.4-10.8)
[2024-04-13 06:58] LABS: Glucose 80 mg/dL (74-106)
[2024-04-13 06:59] LABS: BUN/Creatinine Ratio 25.9 (10.0-20.0)
[2024-04-13 07:27] LABS: Chloride 97 mmol/L (98-107)
[2024-04-13 07:28] LABS: Anion Gap 2.99999 (5-15); Blood Urea Nitrogen 36 mg/dL (9-23)
[2024-04-13 07:31] LABS: Carbon Dioxide > 40 mmol/L (20-31)
[2024-04-13] MEDS: ENOXAPARIN SOD 60 MG/0.6 ML SYRINGE SC SCH (10:43)
--- NOTE | 2024-04-13 11:07 | DVHPN2 ---
Subjective Patient is seen and examined at bedside, patient was currently on 4L OxyGEN. Cont Lovenox for now. Reviewed: Care Plan, H&P, Labs, Medications, Previous Orders, Radiology Changes from previous H/P or p: No Changes Objective Vitals Vital Signs Date Time Temp Pulse Resp B/P (MAP) Pulse Ox O2 Delivery O2 Flow Rate FiO2 04/13/24 10:18 111/43 04/13/24 09:24 97.9 74 18 95 97.9 04/13/24 08:00 Nasal Cannula* 4 36 Intake/Output Intake and Output 04/13/24 07:00 Intake Total 891 ml Output Total 3075 ml Balance -2184 ml Intake Oral 791 ml IV Total 100 ml Output Urine Total 3075 ml # Bowel Movements 1 General Appearance: Alert, Oriented X3, Cooperative HEENT: Atraumatic Lungs: Other (Few crackles bilateral lungs) Cardiovascular: Regular rate Abdomen: Normal bowel sounds Extremities: Other (1+ edema bilateral lower extremities) Medications Current Medications Medications Dose Ordered Sig/Carol Route Start Time Stop Time Status Last Admin Dose Admin Amiodarone HCl 200 mg DAILY PO 04/09/24 10:00 04/13/24 10:19 200 MG Aspirin 81 mg DAILY PO 04/09/24 10:00 04/13/24 10:19 81 MG Atorvastatin Calcium 40 mg HS PO 04/08/24 22:00 04/12/24 21:40 40 MG Clopidogrel Bisulfate 75 mg DAILY PO 04/09/24 10:00 04/13/24 10:19 75 MG Furosemide 20 mg BID IV 04/08/24 22:00 04/13/24 10:18 20 MG Al Hydrox/Mg Hydrox/Simethicone 30 ml Q6HP PRN PO 04/08/24 17:30 Docusate Sodium 100 mg BIDPRN PRN PO 04/08/24 17:30 04/11/24 03:10 100 MG Acetaminophen 650 mg Q6HP PRN PO 04/08/24 17:30 Acetaminophen/ Hydrocodone Bitart 1 tab Q4HP PRN PO 04/08/24 17:30 Ondansetron HCl 4 mg Q4HP PRN IV 04/08/24 17:30 Morphine Sulfate 2 mg Q4HPRN PRN IV 04/08/24 17:30 Doxycycline Monohydrate 100 mg Q12HR PO 04/09/24 22:00 04/13/24 10:19 100 MG Aztreonam 1 gm/ Dextrose 50 ml @ 100 mls/hr Q8HR IV 04/11/24 22:00 04/13/24 05:27 100 MLS/HR Albuterol 2.5 mg Q4HPRN PRN NEB 04/12/24 15:00 04/12/24 20:13 2.5 MG Ipratropium [place] 0.5 mg Q4HPRN PRN NEB 04/12/24 15:00 04/12/24 20:13 0.5 MG Acetylcysteine 200 mg Q8HR NEB 04/12/24 22:00 04/12/24 20:13 200 MG Enoxaparin Sodium 60 mg DAILY SC 04/13/24 10:00 04/13/24 10:43 60 MG Laboratory Results Laboratory Tests 04/13/24 06:09 Chemistry Test 04/13/24 06:09 Calcium Level 8.7 mg/dL (8.7-10.4) Magnesium Level 2.0 mg/dL (1.6-2.6) Coagulation Test 04/12/24 11:35 D-Dimer, Quantitative 2.20 mg/L FEU (0.0-0.49) H Cardiac Markers Test 04/13/24 06:09 B-Type Natriuretic Peptide 643.07 pg/mL (0-100) Urinalysis Test 04/08/24 15:33 Urine Color Light-yellow (Yellow) Urine Clarity Clear (Clear) Urine pH 5.0 (5.0-9.0) Urine Specific [place] 1.011 (1.001-1.035) Urine Protein Trace (Negative) H Urine Ketones Negative (Negative) Urine Blood Negative /uL (Negative) Urine Nitrite Negative (Negative) Urine Bilirubin Negative (Negative) Urine Urobilinogen Normal mg/dL (Negative) Urine Leukocyte Esterase Negative /uL (Negative) Urine RBC <1 /hpf (0 - 4) Urine WBC <1 /hpf (0 - 5) Urine Squamous Epithelial Cells Few /hpf (<5) Urine Bacteria None seen /hpf (None Seen) Urine Hyaline Casts Few /lpf (0 - 2) Urine Glucose Normal mg/dL (Normal) Assessment/Plan Assessment/Plan Acute on chronic diastolic heart failure- Lasix Possible PE??? Lovenox. 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 Hyperkalemia- Resolved Goals of care- FULL CODE Plan discussed with: Patient My Orders Orders - GERRY VASQUEZ MD Procedure Category Date Status Time Bilat Lower Dvt US 04/12/24 Resulted 14:55 Incentive Spirometry ORDERS 04/12/24 Transmitted Q 1hr 14:59 Albuterol Medneb PHA 04/12/24 In Process (Ventolin Medneb) 15:00 Ipratropium Medneb PHA 04/12/24 In Process (Atrovent Medneb) 15:00 Acetylcysteine PHA 04/12/24 In Process Inhalation 20% 22:00 Incentive Spirometry ORDERS 04/12/24 Transmitted Q 1hr 15:04 Respiratory Culture LISSETTE 04/12/24 Logged W/ Gs 15:04 Chest Portable XY 04/13/24 Resulted 04:00 Enoxaparin Sodium PHA 04/13/24 In Process (Lovenox) 10:00 Respiratory Culture LISSETTE 04/12/24 Uncollected W/ Gs 16:55 Abg W/ Co-Ox RT 04/13/24 Verified 11:05 Basic Metabolic Panel LAB 04/14/24 Verified 04:00 Date of Service: Apr 13, 2024 Billing Provider: GERRY VASQUEZ MD Common Visit Codes: [id number] INP/OBS CARE(HIGH) GERRY VASQUEZ MD Apr 13, 2024 11:07
[2024-04-13 11:44] LABS: Base Excess 6.9 mmol/L (-2.0-3.0)
--- NOTE | 2024-04-13 13:18 | DVHPN2 ---
Progress Note - Dictate Date Seen: Apr 13, 2024 Medical Necessity Reason Pt with a Central, PICC or Fol: Yes The following are medically ne: [place] Catheter Subjective UOP 3L in last 24hrs Oxygen requirements have improved Reports she is breathing much better Appears more comfortable vital signs Vital Sign Date Time Temp Pulse Resp B/P (MAP) Pulse Ox O2 Delivery O2 Flow Rate FiO2 04/13/24 13:00 97.9 77 17 118/50 (72) 96 97.9 04/13/24 08:00 Nasal Cannula* 4 36 Total Intake and Output 04/12/24 04/12/24 04/13/24 15:00 23:00 07:00 Intake Total 486 ml 405 ml Output Total 1700 ml 1375 ml Balance -1214 ml -970 ml medications Current Medications Medications Dose Ordered Sig/Carol Route Start Time Stop Time Status Last Admin Dose Admin Amiodarone HCl 200 mg DAILY PO 04/09/24 10:00 04/13/24 10:19 200 MG Aspirin 81 mg DAILY PO 04/09/24 10:00 04/13/24 10:19 81 MG Atorvastatin Calcium 40 mg HS PO 04/08/24 22:00 04/12/24 21:40 40 MG Clopidogrel Bisulfate 75 mg DAILY PO 04/09/24 10:00 04/13/24 10:19 75 MG Al Hydrox/Mg Hydrox/Simethicone 30 ml Q6HP PRN PO 04/08/24 17:30 Docusate Sodium 100 mg BIDPRN PRN PO 04/08/24 17:30 04/11/24 03:10 100 MG Acetaminophen 650 mg Q6HP PRN PO 04/08/24 17:30 Acetaminophen/ Hydrocodone Bitart 1 tab Q4HP PRN PO 04/08/24 17:30 Ondansetron HCl 4 mg Q4HP PRN IV 04/08/24 17:30 Morphine Sulfate 2 mg Q4HPRN PRN IV 04/08/24 17:30 Doxycycline Monohydrate 100 mg Q12HR PO 04/09/24 22:00 04/13/24 10:19 100 MG Aztreonam 1 gm/ Dextrose 50 ml @ 100 mls/hr Q8HR IV 04/11/24 22:00 04/13/24 13:00 100 MLS/HR Albuterol 2.5 mg Q4HPRN PRN NEB 04/12/24 15:00 04/12/24 20:13 2.5 MG Ipratropium [place] 0.5 mg Q4HPRN PRN NEB 04/12/24 15:00 04/12/24 20:13 0.5 MG Acetylcysteine 200 mg Q8HR NEB 04/12/24 22:00 04/12/24 20:13 200 MG Enoxaparin Sodium 60 mg DAILY SC 04/13/24 10:00 04/13/24 10:43 60 MG objective elderly female + rales no pitting edema frail appearing thurston catheter laboratory and microbiology Laboratory Tests 04/13/24 06:09 Test 04/13/24 06:09 Range/Units Serum Glucose 80 74-106 mg/dL Assessment/Plan Acute kidney injury on ckd 3b ckd solitary kidney after hx nephrectomy in 2010 fluid overload likely in setting of CHF-> grade 1 diastolic heart failure hyperkalemia resolved SOB Metabolic alkalosis is compensation due to hypercarbia. Reduce Lasix to once per day fluid restriction supportive care echo noted above thurston uop noted + dimer pending rule out PE was unable to lay flat for scan was started on anticoagulation Dietary Evaluation Review Comments: Recommend pt follow a 2 gNa 3K, low Phos, CCHO-60 diet plus a renal specific 50g protein restriction. Expected Outcomes/Goals: controlled blood sugar, minimize uremic syndrome Plan discussed with: Patient KAREN OCASIO MD Apr 13, 2024 13:18
--- NOTE | 2024-04-13 15:06 | DVH ---
EXAM: NM NM VQ SCAN HISTORY: PULMONARY EMBOLISM COMPARISON: None TECHNIQUE: Following the administration of the ventilation agent, standard projections of the lungs were acquired. The same images were repeated after administration of the perfusion agent. Findings: Ventilation images demonstrate homogenous distribution of radiotracer throughout both lungs. Perfusion images demonstrate homogeneous distribution of radiotracer throughout both lungs. No periph eral wedge-shaped moderate or large subsegmental or segmental mismatched perfusion defects to suggest acute pulmonary embolism. Impression: 1. Based on PIOPED criteria, low probability for pulmonary embolism.
[2024-04-13] MEDS: ONDANSETRON HCL 4 MG/2 ML VIAL IV PRN (20:06)
[2024-04-14] VITALS (11 sets, daily range): BP systolic 93–125; BP diastolic 55–62; PULSE 66–112; RESP 15–20; TEMP 97.5–97.9; O2SAT 92–100
[2024-04-14 08:46] LABS: Potassium 4.6 mmol/L (3.5-5.1); Sodium 140 mmol/L (136-145)
[2024-04-14 08:47] LABS: Anion Gap 5 (5-15); Calcium 9.2 mg/dL (8.7-10.4)
[2024-04-14 08:52] LABS: BUN/Creatinine Ratio 25.6 (10.0-20.0); Glucose 92 mg/dL (74-106)
[2024-04-14 08:55] LABS: Chloride 95 mmol/L (98-107)
[2024-04-14 08:57] LABS: Blood Urea Nitrogen 33 mg/dL (9-23); Carbon Dioxide 40 mmol/L (20-31)
[2024-04-14] MEDS: FUROSEMIDE 20 MG/2 ML VIAL IV SCH (09:28)
[2024-04-14] MEDS: ENOXAPARIN SOD 30 MG/0.3 ML SYRINGE SC SCH (10:00)
--- NOTE | 2024-04-14 14:19 | DVHPN2 ---
Progress Note - Dictate Date Seen: Apr 14, 2024 Medical Necessity Reason Pt with a Central, PICC or Fol: Yes The following are medically ne: [place] Catheter Subjective UOP Oxygen requirements have improved but still requires 3L Reports she is breathing much better Appears more comfortable seen with walker in hallway while on oxygen vital signs Vital Sign Date Time Temp Pulse Resp B/P (MAP) Pulse Ox O2 Delivery O2 Flow Rate FiO2 04/14/24 13:27 77 18 100 04/14/24 13:18 Nasal Cannula 3.0 04/14/24 13:18 32 04/14/24 13:09 97.9 93/57 (69) 97.9 Total Intake and Output 04/13/24 04/13/24 04/14/24 15:00 23:00 07:00 Intake Total 800 ml 240 ml Output Total 2100 ml 650 ml Balance -1300 ml -410 ml medications Current Medications Medications Dose Ordered Sig/Carol Route Start Time Stop Time Status Last Admin Dose Admin Amiodarone HCl 200 mg DAILY PO 04/09/24 10:00 04/14/24 09:28 200 MG Aspirin 81 mg DAILY PO 04/09/24 10:00 04/14/24 10:13 81 MG Atorvastatin Calcium 40 mg HS PO 04/08/24 22:00 04/13/24 21:26 40 MG Clopidogrel Bisulfate 75 mg DAILY PO 04/09/24 10:00 04/14/24 10:13 75 MG Al Hydrox/Mg Hydrox/Simethicone 30 ml Q6HP PRN PO 04/08/24 17:30 Docusate Sodium 100 mg BIDPRN PRN PO 04/08/24 17:30 04/11/24 03:10 100 MG Acetaminophen 650 mg Q6HP PRN PO 04/08/24 17:30 Acetaminophen/ Hydrocodone Bitart 1 tab Q4HP PRN PO 04/08/24 17:30 Ondansetron HCl 4 mg Q4HP PRN IV 04/08/24 17:30 04/13/24 20:06 4 MG Morphine Sulfate 2 mg Q4HPRN PRN IV 04/08/24 17:30 Doxycycline Monohydrate 100 mg Q12HR PO 04/09/24 22:00 04/14/24 09:28 100 MG Aztreonam 1 gm/ Dextrose 50 ml @ 100 mls/hr Q8HR IV 04/11/24 22:00 04/14/24 13:49 100 MLS/HR Albuterol 2.5 mg Q4HPRN PRN NEB 04/12/24 15:00 04/14/24 13:18 2.5 MG Ipratropium [place] 0.5 mg Q4HPRN PRN NEB 04/12/24 15:00 04/14/24 13:18 0.5 MG Acetylcysteine 200 mg Q8HR NEB 04/12/24 22:00 04/14/24 13:18 200 MG Furosemide 20 mg DAILY IV 04/14/24 10:00 04/14/24 09:28 20 MG Enoxaparin Sodium 30 mg DAILY SC 04/14/24 10:00 objective elderly female + rales no pitting edema frail appearing thurston catheter laboratory and microbiology Laboratory Tests 04/14/24 06:23 04/13/24 06:09 Test 04/14/24 06:23 Range/Units Serum Glucose 92 74-106 mg/dL Assessment/Plan Acute kidney injury on ckd 3b ckd solitary kidney after hx nephrectomy in 2010 fluid overload likely in setting of CHF-> grade 1 diastolic heart failure, pulm HTN hyperkalemia resolved SOB Metabolic alkalosis is compensation due to hypercarbia. Reduce Lasix to once per day fluid restriction supportive care echo noted above [place]ur[place] uop noted + dimer v/q was negative Dietary Evaluation Review Comments: Recommend pt follow a 2 gNa 3K, low Phos, CCHO-60 diet plus a renal specific 50g protein restriction. Expected Outcomes/Goals: controlled blood sugar, minimize uremic syndrome Plan discussed with: Patient, Spouse KAREN OCASIO MD Apr 14, 2024 14:19
--- NOTE | 2024-04-14 15:59 | DVHDS2 ---
Discharge Summary Date of Admission Apr 08, 2024 at 17:18 Date of Discharge: Apr 14, 2024 Admitting Diagnosis Acute Resp failure Labs/Diagnostic Data: Laboratory Results Test 04/14/24 06:23 04/13/24 11:25 04/13/24 06:09 04/12/24 11:35 Sodium Level 140 mmol/L (136-145) Potassium Level 4.6 mmol/L (3.5-5.1) Chloride Level 95 mmol/L (98-107) Carbon Dioxide Level 40 mmol/L (20-31) Anion Gap 5 (5-15) Blood Urea Nitrogen 33 mg/dL (9-23) Creatinine 1.29 mg/dL (0.550-1.02) Glomerular Filtration Rate Calc 43 mL/min (>90) BUN/Creatinine Ratio 25.6 (10.0-20.0) Serum Glucose 92 mg/dL (74-106) Calcium Level 9.2 mg/dL (8.7-10.4) Blood Gas Specimen Type Arterial Blood Gas Sample Site Left brachial Blood Gas Patient Temperature 37.0 Arterial Blood Date Drawn [id number] Arterial Blood pH 7.321 (7.350-7.450) Arterial Blood Partial Pressure CO2 70.6 mmHg (32.0-45.0) Arterial Blood Partial Pressure O2 89.1 mmHg (83.0-108.0) Arterial Blood HCO3 35.6 mmol/L (21.0-28.0) Arterial Blood Oxygen Saturation 96.3 % (94.0-98.0) Arterial Blood Base Excess 6.9 mmol/L (-2.0-3.0) Arterial Blood Oxyhemoglobin 93.9 % (94.0-98.0) Arterial Blood Carboxyhemoglobin 2.2 % (0.5-1.5) Arterial Blood Methemoglobin 0.3 % (0.0-1.5) Alek Test Yes Blood Gas Total Hemoglobin 14.10 g/dL (12.0-16.0) Blood Gas Modality Nasal cannula FiO2 % 36.0 Blood Gas Critical Value Read Back Yes Blood Gas Notified Whom Md charleen i Blood Gas Notified Time [id number] Blood Gas Notified By Labeler maikol arriaga White Blood Count 4.6 10^3/uL (4.4-10.8) Red Blood Count 4.66 10^6/uL (4.0-5.20) Hemoglobin 13.2 g/dL (12.2-16.2) Hematocrit 41.3 % (36.0-46.0) Mean Corpuscular Volume 88.6 fL (80.0-100.0) Mean Corpuscular Hemoglobin 28.3 pg (28.0-32.0) Mean Corpuscular Hemoglobin Concent 32.0 g/dL (32.0-36.0) Red Cell Distribution Width 15.4 % (11.8-14.3) Platelet Count 126 10^3/uL (140-450) Mean Platelet Volume 7.8 fL (6.9-10.8) Neutrophils (%) (Auto) 77.0 % (37.0-80.0) Lymphocytes (%) (Auto) 7.5 % (10.0-50.0) Monocytes (%) (Auto) 15.1 % (0.0-12.0) Eosinophils (%) (Auto) 0.3 % (0.0-7.0) Basophils (%) (Auto) 0.1 % (0.0-2.0) Neutrophils # (Auto) 3.6 10 ^3/uL (1.6-8.6) Lymphocytes # (Auto) 0.3 10 ^3/uL (0.4-5.4) Monocytes # (Auto) 0.7 10 ^3/uL (0-1.3) Eosinophils # (Auto) 0 10 ^3/uL (0-0.8) Basophils # (Auto) 0 10 ^3/uL (0-0.2) Nucleated Red Blood Cells 0.5 % Magnesium Level 2.0 mg/dL (1.6-2.6) B-Type Natriuretic Peptide 643.07 pg/mL (0-100) D-Dimer, Quantitative 2.20 mg/L FEU (0.0-0.49) Test 04/10/24 11:44 04/10/24 05:37 04/08/24 19:57 04/08/24 15:33 POC Glucose 121 mg/dl (70-106) Total Bilirubin 0.6 mg/dL (0.2-1.0) Aspartate Amino Transferase (AST) 30 U/L (13-40) Alanine Aminotransferase (ALT) 30 U/L (7-40) Alkaline Phosphatase 99 U/L (46-116) Total Protein 5.8 g/dL (5.7-8.2) Albumin 3.5 g/dL (3.2-4.8) Influenza Type A Antigen Negative (Negative) Influenza Type B Antigen Negative (Negative) SARS-CoV-2 Antigen (Rapid) Negative (NEGATIVE) Urine Color Light-yellow (Yellow) Urine Clarity Clear (Clear) Urine pH 5.0 (5.0-9.0) Urine Specific [place] 1.011 (1.001-1.035) Urine Protein Trace (Negative) Urine Ketones Negative (Negative) Urine Blood Negative /uL (Negative) Urine Nitrite Negative (Negative) Urine Bilirubin Negative (Negative) Urine Urobilinogen Normal mg/dL (Negative) Urine Leukocyte Esterase Negative /uL (Negative) Urine RBC <1 /hpf (0 - 4) Urine WBC <1 /hpf (0 - 5) Urine Squamous Epithelial Cells Few /hpf (<5) Urine Bacteria None seen /hpf (None Seen) Urine Hyaline Casts Few /lpf (0 - 2) Urine Glucose Normal mg/dL (Normal) Test 04/08/24 14:26 Troponin I High Sensitivity 19 ng/L (</=34) Other Laboratory Tests 04/14/24 06:23 04/13/24 06:09 Brief Hx & Hospital Course: 74 year old female with past medical history of kidney cancer and esophageal replacement history of CHF hypertension comes into the ED for evaluation of severe shortness of breath patient states his shortness breath has been present a month on evaluation in the ED patient had multiple complaints including continue complaints of orthopnea patient unable to lay flat having trouble maintaining saturations and requiring O 2 saturations and O2 support patient also reports having leg swelling bilaterally patient recommended for admission further evaluation. Patient likely has undiagnosed COPD. Patient has a history of renal cell carcinoma s/p Nephrectomy in the past. Patient wishes to discontinue treatment and discharge home with hospice. Operations or Procedures EXAM: CT CHEST WITHOUT CONTRAST History: rule out pneumonia Comparison Study: None available TECHNIQUE: Multidetector CT of the chest was performed. Imaging was performed without IV contrast. Axial, coronal, and sagittal multiplanar reformats were obtained from the axial data set by the technologist. Radiation Dose : CTDI vol 8.11 mGy, DLP 262.91 mGy*cm. Findings: Lungs: Right lower lobe groundglass opacities Pleura: Small bilateral pleural effusions. Heart/Great vessels: Cardiomegaly. No pericardial effusion. Mediastinum: Unremarkable Soft tissues/Bones: Unremarkable The partially visualized upper abdomen is within normal limits. Impression: 1. Right lower lobe groundglass opacities favor an infectious/inflammatory etiology. 2. Small bilateral pleural effusions. 3. Cardiomegaly. Condition at Discharge: Poor Final Diagnosis/Problems List Acute on chronic diastolic heart failure- Lasix Possible PE??? Lovenox. 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 Patient was counseled about treatment plan, medications, possible side effects, patientverbalized understanding. All questions were answered to the best of my ability. This discharge took greater then 30 minutes in planning, reviewing documentation, counseling the patient, and discussing with other team members." ASSESSMENT ASSESSMENT Assessment Date of Service: Apr 14, 2024 Billing Provider: GERRY VASQUEZ MD Common Visit Codes: [id number] DISCH DAY >30min GERRY VASQUEZ MD Apr 14, 2024 15:59
== END 2024-04-14 18:48 | disposition hospice, home (50) | DRG 291 ==
LOC: ER 11:07 → TELE 17:18 → TELE-CENTR 23:55
PROVIDERS: ADMIT Hospitalist; ATTEND Internal Medicine
DX: I13.0 Hypertensive heart and chronic kidney disease with heart failure and stage 1 through stage 4 chronic kidney disease, or unspecified chronic kidney disease (principal); I50.43 Acute on chronic combined systolic (congestive) and diastolic (congestive) heart failure; J96.00 Acute respiratory failure, unspecified whether with hypoxia or hypercapnia; L03.115 Cellulitis of right lower limb; L03.116 Cellulitis of left lower limb; N17.9 Acute kidney failure, unspecified; E87.3 Alkalosis; R73.03 Prediabetes; E87.5 Hyperkalemia; N18.32 Chronic kidney disease, stage 3b; I27.20 Pulmonary hypertension, unspecified; Z79.899 Other long term (current) drug therapy; Z90.5 Acquired absence of kidney; Z85.528 Personal history of other malignant neoplasm of kidney; Z88.0 Allergy status to penicillin
CPT/HCPCS: 36415; 36600; 70551; 71045; 71250; 78582; 80048; 80053; 81001; 82805; 82962; 83735; 83880; 84132; 84484; 85025; 85379; 87426; 87804; 93005; 93306; 93970; 94640; 96374; 97163; 99291; 99292; G0378; J1815; J2405; J7060

== ENCOUNTER → 2024-06-28 | Outpatient (CLI) | payer OTHER ==
[~2024-06-28] MED LIST changes: -METO-158 PO
[2024-06-28 07:55] LABS: Basophils # (auto) 0 10 ^3/uL (0-0.2); Basophils % (auto) 0.7 % (0.0-2.0); Eosinophils # (auto) 0.1 10 ^3/uL (0-0.8); Eosinophils % (auto) 1.4 % (0.0-7.0); Hematocrit 45.2 % (36.0-46.0); Hemoglobin 14.1 g/dL (12.2-16.2); Lymphocytes # (auto) 1.2 10 ^3/uL (0.4-5.4); Mean Corpuscular Hemoglobin 28.2 pg (28.0-32.0); Mean Corpuscular Hgb Conc. 31.2 g/dL (32.0-36.0); Mean Corpuscular Volume 90.2 fL (80.0-100.0); Monocytes # (auto) 0.4 10 ^3/uL (0-1.3); Monocytes % (auto) 9.1 % (0.0-12.0); Neutrophils # (auto) 2.7 10 ^3/uL (1.6-8.6); Neutrophils % (auto) 61.8 % (37.0-80.0); Nucleated Red Blood Cells % 0.1 %; Platelet Count (auto) 159 10^3/uL (140-450); Red Blood Cells 5.01 10^6/uL (4.0-5.20); Red Cell Distribution Width 20.5 % (11.8-14.3); White Blood Cell 4.3 10^3/uL (4.4-10.8)
[2024-06-28 09:23] LABS: Alanine Aminotransferase 33 U/L (7-40); Albumin 4.3 g/dL (3.2-4.8); Anion Gap 6 (5-15); Aspartate Aminotransferase 29 U/L (13-40); BUN/Creatinine Ratio 20.7 (10.0-20.0); Calcium 9.8 mg/dL (8.7-10.4); Chloride 106 mmol/L (98-107); GFR African American 44 mL/min; GFR Non-African American 36 mL/min; Glucose 105 mg/dL (74-106); Phosphorus 4.1 mg/dL (2.4-5.1); Potassium 4.8 mmol/L (3.5-5.1); Sodium 144 mmol/L (136-145)
[2024-06-28 09:24] LABS: Bilirubin, Total 0.4 mg/dL (0.2-1.0); Total Protein 6.4 g/dL (5.7-8.2)
[2024-06-28 09:30] LABS: Alkaline Phosphatase 119 U/L (46-116); Blood Urea Nitrogen 31 mg/dL (9-23); Carbon Dioxide 32 mmol/L (20-31)
[2024-06-28 11:00] LABS: Urine Bacteria None Seen /hpf (None Seen)
[2024-06-28 11:21] LABS: Urine Blood Negative /uL (Negative); Urine Clarity Clear (Clear); Urine Color Light-Yellow (Yellow); Urine Protein, UAD Negative (Negative); Urine Specific Gravity 1.012 (1.001-1.035); Urine Squamous Epithelial Cell FEW /hpf (<5); Urine Urobilinogen Normal (Negative); Urine WBC 1 /HPF (0-5); Urine pH 5.5 (5.0-9.0)
[2024-06-28 15:26] LABS: Triglycerides 73 mg/dL (< 150)
[2024-06-28 15:27] LABS: Cholesterol 146 mg/dL (< 200); LDL Cholesterol 51 mg/dL (< 100)
[2024-06-28 15:31] LABS: HDL Cholesterol 73 mg/dL (40-59)
[2024-06-28 16:19] LABS: Creatinine, Urine 44.21 mg/dL (30.0-125.0)
== END | disposition home or self-care (01) ==
LOC: LAB 07:27
PROVIDERS: ATTEND Internal Medicine
DX: Z00.01 Encounter for general adult medical examination with abnormal findings (principal); I12.9 Hypertensive chronic kidney disease with stage 1 through stage 4 chronic kidney disease, or unspecified chronic kidney disease; E11.22 Type 2 diabetes mellitus with diabetic chronic kidney disease; N18.30 Chronic kidney disease, stage 3 unspecified; I50.9 Heart failure, unspecified; E11.21 Type 2 diabetes mellitus with diabetic nephropathy; I73.9 Peripheral vascular disease, unspecified; D75.1 Secondary polycythemia; E78.5 Hyperlipidemia, unspecified; E21.3 Hyperparathyroidism, unspecified; E55.9 Vitamin D deficiency, unspecified; N39.0 Urinary tract infection, site not specified; M10.9 Gout, unspecified; R80.9 Proteinuria, unspecified; D63.1 Anemia in chronic kidney disease
CPT/HCPCS: 36415; 80053; 80061; 80069; 81001; 82043; 82570; 83036; 83970; 84439; 84443; 84550; 85025